=== PATIENT | female | born 1950 | race Caucasian/White ===

== ENCOUNTER 2017-08-21 16:54 | Observation (INO) ==
--- NOTE | 2017-08-21 17:05 | Emergency Department Note ---
Disposition Clinical Impression: Perirectal abscess Disposition: Admitted As Inpatient Condition: Fair Referrals: Curt Rosenbaum MD [Primary Care Provider] - Time of Disposition: 21:46 Skin/Abscess/FB HPI Chief complaint: ED Skin/Abscess/Foreign Body Stated complaint: rectal cyst Time Seen by Provider: 08/21/17 16:58 Nursing Notes Reviewed: Yes Vital Signs Reviewed: Yes HPI Narrative: 57-year-old female presents from home for evaluation of pain in her perineum and rectum. Onset 6 days ago and progressive. She states there is a palpable golf ball sized mass beneath her perineum. It is internal and not external. She has a remote history of hemorrhoid was resected. She has no bleeding per rectum. She is concerned as masses painful and she is having difficulty sitting. Abdominal surgical history: Hysterectomy, bilateral oophorectomy. ROS: Positive: As above Negative: Fever, chills, nausea, vomiting, diarrhea, constipation, melena, hematochezia, dysuria. Home Medications Medication Instructions Recorded Confirmed Aspirin Enteric Coated [Aspirin EC] 81 mg PO DAILY 11/22/14 05/10/16 Carvedilol [Coreg] 12.5 mg PO BIDWM 11/22/14 05/10/16 Ergocalciferol (VITAMIN D2) 50,000 unit PO QWEEK 11/22/14 05/10/16 [Vitamin D2 (50,000 UNIT)] Glimepiride [Amaryl] 2 mg PO 0800 11/22/14 05/10/16 Insulin Glargine,Hum.rec.anlog 56 units SQ QPM 11/22/14 05/10/16 [Lantus Solostar] Insulin LISPRO [Humalog Kwikpen] 15 units SQ BID 11/22/14 05/10/16 Isosorbide MONOnitrate (24 HR) 30 mg PO DAILY 11/22/14 05/10/16 [Imdur] Lisinopril [Zestril] 40 mg PO DAILY 11/22/14 05/10/16 Lovastatin [Altoprev] 40 mg PO BID 11/22/14 05/10/16 Levocetirizine Dihydrochloride 5 mg PO HS 05/10/16 05/10/16 [Xyzal] Allergies Allergy/AdvReac Type Severity Reaction Status Date / Time atorvastatin [From Lipitor] Allergy Rash Verified 08/21/17 16:56 codeine Allergy Rash Verified 08/21/17 16:56 ibuprofen Allergy Rash Verified 08/21/17 16:56 NSAIDS (Non-Steroidal Allergy Rash Verified 08/21/17 16:56 Anti-Inflamma pioglitazone [From Actos] Allergy Rash Verified 08/21/17 16:56 Sulfa (Sulfonamide Allergy Hives Verified 08/21/17 16:56 Antibiotics) tramadol Allergy Rash Verified 08/21/17 16:56 HYDROCHLORIDE SALSALATE Allergy See Uncoded 11/22/14 14:43 Comments IVP DYE AdvReac Difficulty Uncoded 11/22/14 14:42 Breathing All systems ED: reviewed and negative except as stated. Review of Systems: As Per HPI Past Medical History - Past Medical History Medical history: Reports: coronary artery disease, diabetes, hyperlipidemia, hypertension, other Surgical history: Reports: cholecystectomy, orthopedic, other, NATALIYA/BSO, other Psychiatric history: Reports: no psych history - Social History Smoking Status: Never smoker Smokeless Tobacco Status: No Alcohol use: Reports: none Drug use: Reports: none Physical Exam Vital Signs Reviewed General: Patient is alert, oriented, and in moderate distress from her peritoneal pain Head: atraumatic, normocephalic Eye: normal appearance, no scleral icterus, no conjunctival injection ENT: mucous membranes moist, normal external ear exam Neck: normal inspection, trachea midline, full ROM Chest: normal inspection, symmetric chest rise Respiratory: Good respiratory effort. Bilateral breath sounds are clear without wheezing, crackles, or rhonchi. Cardiovascular: Regular rate and rhythm. No clicks, rubs, gallops, or murmors. Normal heart sounds. Abdomen: Obese. Bowel sounds present normoactive. Abdomen is soft, nondistended, and nontender. No guarding or rebound. Musculoskeletal: Spontaneously moving all extremities. Skin: warm, dry, intact. Rectal/: Surveillance Monitor present. Patient has a 2 cm wide by 5-6 cm long mass extending from the rectal orifice along the perineum anteriorly. It is tense, mildly erythematous, tender to palpation, with palpable induration. On digital rectal exam, this mass extended approximately 5 cm deep in the rectum. Neuro: Alert and oriented x4. Sensation light touch intact. Psych: Patient's affect is appropriate for situation. Course Course Narrative: We will provide patient IV analgesia. X Chart shows an allergy to IV dye-patient with difficulty breathing. I discussed this patient. She was not aware she had an allergy until she was told by hospital staff after a heart catheter. She is not sure of her reaction. She is agreeable to moving forward with the CT with IV contrast on the condition and we premedicate her per protocol. Per radiology protocol, premedication includes Solu-Cortef 200 mg IV every 4 hours plus diphenhydramine 50 mg IV one hour prior to injection.. Patient tolerated CT with IV contrast well. She has elevated white count. CT pelvis with IV contrast shows concern for perirectal abscess. I discussed the above with on-call surgery, Dr. Bradley. She was take the patient to surgery tonight. We will begin empiric Zosyn. I discussed the above with the patient. She continues to be comfortable while laying on her side with no weightbearing on her peridium. She agrees to this plan of care. Patient admitted to Dr. Bradley. Patient was taken from the ER to the OR to the medical floor. Pelvis CT 08/21/17 17:28 IMPRESSION: 1. 4.9 x 3.9 x 4.3 cm fluid density collection in the posterior perineum with adjacent stranding suspicious for an abscess. 2. Status post hysterectomy. 3. Colonic diverticulosis. D/ / Jarred Tafoya MD / Jarred Tafoya MD Interpreting Provider: Jarred Tafoya MD Vital Signs Temperature 98.0 F 08/21/17 16:55 Pulse Rate 80 08/21/17 16:55 Respiratory Rate 16 08/21/17 16:55 Blood Pressure 186/79 08/21/17 16:55 O2 Sat by Pulse Oximetry 98 08/21/17 16:55 Temperature 98.0 F 08/21/17 18:06 Pulse Rate 75 08/21/17 20:58 Respiratory Rate 20 08/21/17 20:58 Blood Pressure 157/96 08/21/17 20:58 O2 Sat by Pulse Oximetry 95 08/21/17 20:58 Oxygen Delivery Oxygen Delivery Room Air Skin/Abscess/Foreign Body - Lab Data Result diagrams: 08/21/17 19:43 08/21/17 18:31 Lab Results 08/21/17 08/21/17 08/21/17 Range/Units 18:21 18:31 19:43 WBC 19.3 H (4.3-11.1) K/mcL RBC 4.53 (3.82-4.97) M/mcL Hgb 13.1 (11.5-15.4) g/dL Hct 40.6 (35.3-44.9) % MCV 89.6 (83.0-100.0) fL MCH 28.9 (28.0-33.3) pg MCHC 32.3 (31.6-35.5) g/dL RDW 13.3 (11.5-14.5) % Plt Count 242 (140-400) K/mcL MPV 10.7 (9.4-12.4) fL Immature Gran % 0.8 (0-4) % Seg Neutrophils % 76.3 % Lymphocytes % 15.5 % Monocytes % 6.2 % Eosinophils % 0.9 % Basophils % 0.3 % Neutrophils # 14.7 H (1.6-8.9) K/mcL Lymphocytes # 3.0 (0.6-4.6) K/mcL Monocytes # 1.2 (0.0-1.3) K/mcL Eosinophils # 0.2 (0.0-0.6) K/mcL Basophils # 0.1 (0.0-0.2) K/mcL PT (9.4-12.1) Seconds INR Sodium 139 (136-145) mEq/L Potassium 4.0 (3.5-5.1) mEq/L Chloride 104 (98-107) mEq/L Carbon Dioxide 26 (23-29) mEq/L BUN 22 (8-23) mg/dL Creatinine 1.28 H (0.60-1.20) mg/dL Est GFR ( Amer) 50 L (> 60) Est GFR (Non-Af Amer) 42 L (> 60) BUN/Creatinine Ratio 17 (6-26) Glucose 105 (70-105) mg/dL Calculated Osmolality 292 (280-300) Lactic Acid (0.5-2.2) mmol/L Calcium 8.9 (8.6-10.3) mg/dL Specimen Rejected Hemolyzed 07/01/18 07/01/18 Range/Units 20:32 20:32 WBC (4.3-11.1) K/mcL RBC (3.82-4.97) M/mcL Hgb (11.5-15.4) g/dL Hct (35.3-44.9) % MCV (83.0-100.0) fL MCH (28.0-33.3) pg MCHC (31.6-35.5) g/dL RDW (11.5-14.5) % Plt Count (140-400) K/mcL MPV (9.4-12.4) fL Immature Gran % (0-4) % Seg Neutrophils % % Lymphocytes % % Monocytes % % Eosinophils % % Basophils % % Neutrophils # (1.6-8.9) K/mcL Lymphocytes # (0.6-4.6) K/mcL Monocytes # (0.0-1.3) K/mcL Eosinophils # (0.0-0.6) K/mcL Basophils # (0.0-0.2) K/mcL PT 13.4 H (9.4-12.1) Seconds INR 1.2 Sodium (136-145) mEq/L Potassium (3.5-5.1) mEq/L Chloride (98-107) mEq/L Carbon Dioxide (23-29) mEq/L BUN (8-23) mg/dL Creatinine (0.60-1.20) mg/dL Est GFR ( Amer) (> 60) Est GFR (Non-Af Amer) (> 60) BUN/Creatinine Ratio (6-26) Glucose (70-105) mg/dL Calculated Osmolality (280-300) Lactic Acid 0.9 (0.5-2.2) mmol/L Calcium (8.6-10.3) mg/dL Specimen Rejected
[2017-08-21] MEDS ORDERED: 0.9 % Sodium Chloride 1,000 ML IVC ONE (17:28)
[2017-08-21] MEDS ORDERED: Isovue-370 500 ML INFUS..BTL IV ONE (17:28)
[2017-08-21] MEDS ORDERED: *HR* FentaNYL (PF) 100 MCG/2 ML VIAL IVP ONE (17:28)
[2017-08-21] MEDS ORDERED: Hydrocortisone Sodium Succ 100 MG/2 ML VIAL IVP ONE (17:39)
[2017-08-21 19:05] LABS: Calcium 8.9 mg/dL (8.6-10.3)
[2017-08-21] MEDS ORDERED: Piperacillin/Tazobactam 3.375 GM in 0.9 % Sodium Chloride Mini Bag 100 ML IVPB ONE (19:52)
[2017-08-21 20:00] LABS: Basophils # 0.1 K/mcL (0.0-0.2); Basophils % 0.3 %; Eosinophils # 0.2 K/mcL (0.0-0.6); Eosinophils % 0.9 %; Hematocrit 40.6 % (35.3-44.9); Hemoglobin 13.1 g/dL (11.5-15.4); Immature Granulocytes % 0.8 % (0-4); Lymphocytes % 15.5 %; Mean Corpuscular HGB Conc 32.3 g/dL (31.6-35.5); Mean Corpuscular Hemoglobin 28.9 pg (28.0-33.3); Mean Corpuscular Volume 89.6 fL (83.0-100.0); Mean Platelet Volume 10.7 fL (9.4-12.4); Monocytes # 1.2 K/mcL (0.0-1.3); Monocytes % 6.2 %; Neutrophils # 14.7 K/mcL (1.6-8.9); Platelet Count 242 K/mcL (140-400); Red Blood Count 4.53 M/mcL (3.82-4.97); Red Cell Distribution Width 13.3 % (11.5-14.5); Segmented Neutrophils % 76.3 %
--- NOTE | 2017-08-21 20:09 | Emergency Department Note ---
Disposition Clinical Impression: Perirectal abscess Disposition: Admitted As Inpatient Referrals: Curt Rosenbaum MD [Primary Care Provider] - Forms: ED Satisfaction Letter General Adult HPI - General Chief complaint: ED Skin/Abscess/Foreign Body Stated complaint: rectal cyst Time Seen by Provider: 08/21/17 16:58 Source: patient Limitations: no limitations Nursing Notes Reviewed: Yes Vital Signs Reviewed: Yes - History of Present Illness HPI Narrative: I examined this patient and my medical decision-making was reviewed with the Resident Physician. I agree with the documented findings, disposition and treatment plan as described except to the extent set forth below. 67-year-old female presented to the emergency room for swelling in the perianal region. Workup here revealed that she had a large perirectal abscess. We consulted with surgery. She will take the patient to the operating room. Pain Scale: 10 - Related Data Home Medications Medication Instructions Recorded Confirmed Aspirin Enteric Coated [Aspirin EC] 81 mg PO DAILY 11/22/14 05/10/16 Carvedilol [Coreg] 12.5 mg PO BIDWM 11/22/14 05/10/16 Ergocalciferol (VITAMIN D2) 50,000 unit PO QWEEK 11/22/14 05/10/16 [Vitamin D2 (50,000 UNIT)] Glimepiride [Amaryl] 2 mg PO 0800 11/22/14 05/10/16 Insulin Glargine,Hum.rec.anlog 56 units SQ QPM 11/22/14 05/10/16 [Lantus Solostar] Insulin LISPRO [Humalog Kwikpen] 15 units SQ BID 11/22/14 05/10/16 Isosorbide MONOnitrate (24 HR) 30 mg PO DAILY 11/22/14 05/10/16 [Imdur] Lisinopril [Zestril] 40 mg PO DAILY 11/22/14 05/10/16 Lovastatin [Altoprev] 40 mg PO BID 11/22/14 05/10/16 Levocetirizine Dihydrochloride 5 mg PO HS 05/10/16 05/10/16 [Xyzal] Allergies Allergy/AdvReac Type Severity Reaction Status Date / Time atorvastatin [From Lipitor] Allergy Rash Verified 08/21/17 16:56 codeine Allergy Rash Verified 08/21/17 16:56 ibuprofen Allergy Rash Verified 08/21/17 16:56 NSAIDS (Non-Steroidal Allergy Rash Verified 08/21/17 16:56 Anti-Inflamma pioglitazone [From Actos] Allergy Rash Verified 08/21/17 16:56 Sulfa (Sulfonamide Allergy Hives Verified 08/21/17 16:56 Antibiotics) tramadol Allergy Rash Verified 08/21/17 16:56 HYDROCHLORIDE SALSALATE Allergy See Uncoded 11/22/14 14:43 Comments IVP DYE AdvReac Difficulty Uncoded 11/22/14 14:42 Breathing Past Medical History - Past Medical History Medical history: Reports: coronary artery disease, diabetes, hyperlipidemia, hypertension, other Surgical history: Reports: cholecystectomy, orthopedic, other, NATALIYA/BSO, other Psychiatric history: Reports: no psych history - Social History Smoking Status: Never smoker Smokeless Tobacco Status: No Alcohol use: Reports: none Drug use: Reports: none Physical Exam - General Limitations: no limitations General appearance: alert, in no apparent distress Course Vital Signs Temperature 98.0 F 08/21/17 16:55 Pulse Rate 80 08/21/17 16:55 Respiratory Rate 16 08/21/17 16:55 Blood Pressure 186/79 08/21/17 16:55 O2 Sat by Pulse Oximetry 98 08/21/17 16:55 Temperature 98.0 F 08/21/17 18:06 Pulse Rate 70 08/21/17 19:45 Respiratory Rate 18 08/21/17 19:45 Blood Pressure 116/64 08/21/17 19:45 O2 Sat by Pulse Oximetry 94 08/21/17 19:45 Oxygen Delivery Oxygen Delivery Room Air Medical Decision Making - Lab Data Result diagrams: 08/21/17 19:43 08/21/17 18:31 Lab Results 08/21/17 08/21/17 08/21/17 Range/Units 18:21 18:31 19:43 WBC 19.3 H (4.3-11.1) K/mcL RBC 4.53 (3.82-4.97) M/mcL Hgb 13.1 (11.5-15.4) g/dL Hct 40.6 (35.3-44.9) % MCV 89.6 (83.0-100.0) fL MCH 28.9 (28.0-33.3) pg MCHC 32.3 (31.6-35.5) g/dL RDW 13.3 (11.5-14.5) % Plt Count 242 (140-400) K/mcL MPV 10.7 (9.4-12.4) fL Immature Gran % 0.8 (0-4) % Seg Neutrophils % 76.3 % Lymphocytes % 15.5 % Monocytes % 6.2 % Eosinophils % 0.9 % Basophils % 0.3 % Neutrophils # 14.7 H (1.6-8.9) K/mcL Lymphocytes # 3.0 (0.6-4.6) K/mcL Monocytes # 1.2 (0.0-1.3) K/mcL Eosinophils # 0.2 (0.0-0.6) K/mcL Basophils # 0.1 (0.0-0.2) K/mcL Sodium 139 (136-145) mEq/L Potassium 4.0 (3.5-5.1) mEq/L Chloride 104 (98-107) mEq/L Carbon Dioxide 26 (23-29) mEq/L BUN 22 (8-23) mg/dL Creatinine 1.28 H (0.60-1.20) mg/dL Est GFR ( Amer) 50 L (> 60) Est GFR (Non-Af Amer) 42 L (> 60) BUN/Creatinine Ratio 17 (6-26) Glucose 105 (70-105) mg/dL Calculated Osmolality 292 (280-300) Calcium 8.9 (8.6-10.3) mg/dL Specimen Rejected Hemolyzed
[2017-08-21] MEDS ORDERED: *HR* FentaNYL (PF) 100 MCG/2 ML VIAL ONE (20:28)
[2017-08-21] MEDS ORDERED: *HR* Propofol 200 MG/20 ML VIAL IVP ONE (20:28)
[2017-08-21] MEDS ORDERED: Lidocaine -MPF 2% 2 ML VIAL ONE (20:28)
[2017-08-21] MEDS ORDERED: *HR* Midazolam HCl 2 MG/2 ML VIAL ONE (20:28)
[2017-08-21] MEDS ORDERED: Lidocaine -MPF 4% 5 ML AMPUL ONE (20:28)
[2017-08-21] MEDS ORDERED: *HR* Succinylcholine 200 MG/10 ML VIAL IVP ONE (20:28)
[2017-08-21 20:50] LABS: INR 1.2; Prothrombin Time 13.4 Seconds (9.4-12.1)
--- NOTE | 2017-08-21 20:55 | Anesthesia Evaluation PreOp ---
Date of Encounter: 08/21/17 Time of Encounter: 20:58 - Past History Planned Operation: I&D perirectal abcess Cardiac History: HTN, Hyperlipidemia, Arrhythmia (Hx of Tachycardia [Not AFib per Pt]), Other (?CAD?) Pulmonary History: SOPHIE Dx (probable but undiagnosed) PEDIATRIC OPHTHALMOLOGIST History: Denies Any Significant HX Other Medical History: Renal (stage 3 CKD), Diabetes Type II, Other (MO/BMI = 51 ) Anesthesia History: No Prior Anesthetic Complications, Past Anesthesia (Ginny, NATALIYA/BSO, Orthopedic procedures, Perirectal abcess I&D [in ED] 2016,) Alcohol Use: none Drug use: none Medications and Allergies Aspirin Enteric Coated [Aspirin EC] 81 mg PO DAILY 11/22/14 [History] Carvedilol [Coreg] 12.5 mg PO BIDWM 11/22/14 [History] Ergocalciferol (VITAMIN D2) [Vitamin D2 (50,000 UNIT)] 50,000 unit PO QWEEK 04/07 [History] Glimepiride [Amaryl] 2 mg PO 0800 11/22/14 [History] Insulin Glargine,Hum.rec.anlog [Lantus Solostar] 56 units SQ QPM 11/22/14 [ History] Insulin LISPRO [Humalog Kwikpen] 15 units SQ BID 11/22/14 [History] Isosorbide MONOnitrate (24 HR) [Imdur] 30 mg PO DAILY 11/22/14 [History] Lisinopril [Zestril] 40 mg PO DAILY 11/22/14 [History] Lovastatin [Altoprev] 40 mg PO BID 11/22/14 [History] Levocetirizine Dihydrochloride [Xyzal] 5 mg PO HS 05/10/16 [History] 3 Allergy/AdvReac Type Severity Reaction Status Date / Time atorvastatin [From Lipitor] Allergy Rash Verified 08/21/17 16:56 codeine Allergy Rash Verified 08/21/17 16:56 ibuprofen Allergy Rash Verified 08/21/17 16:56 NSAIDS (Non-Steroidal Allergy Rash Verified 08/21/17 16:56 Anti-Inflamma pioglitazone [From Actos] Allergy Rash Verified 08/21/17 16:56 Sulfa (Sulfonamide Allergy Hives Verified 08/21/17 16:56 Antibiotics) tramadol Allergy Rash Verified 08/21/17 16:56 HYDROCHLORIDE SALSALATE Allergy See Uncoded 11/22/14 14:43 Comments IVP DYE AdvReac Difficulty Uncoded 11/22/14 14:42 Breathing - Meds/Allergy Pre-op Review Medications Reviewed: Yes Allergies Reviewed: Yes Beta Blockers on Current Med List: Yes (Carvedilol) If Beta Blockers taken, Date/Time (Last Dose taken): 08/21/2017 @ Anesthesia Results - Labs 08/21/17 19:43 08/21/17 18:31 Laboratory Results WBC 19.3 K/mcL (4.3-11.1) H 08/21/17 19:43 RBC 4.53 M/mcL (3.82-4.97) 08/21/17 19:43 Hgb 13.1 g/dL (11.5-15.4) 08/21/17 19:43 Hct 40.6 % (35.3-44.9) 08/21/17 19:43 MCV 89.6 fL (83.0-100.0) 08/21/17 19:43 MCH 28.9 pg (28.0-33.3) 08/21/17 19:43 MCHC 32.3 g/dL (31.6-35.5) 08/21/17 19:43 RDW 13.3 % (11.5-14.5) 08/21/17 19:43 Plt Count 242 K/mcL (140-400) 08/21/17 19:43 MPV 10.7 fL (9.4-12.4) 08/21/17 19:43 Immature Gran % 0.8 % (0-4) 08/21/17 19:43 Seg Neutrophils % 76.3 % 08/21/17 19:43 Lymphocytes % 15.5 % 08/21/17 19:43 Monocytes % 6.2 % 08/21/17 19:43 Eosinophils % 0.9 % 08/21/17 19:43 Basophils % 0.3 % 08/21/17 19:43 Neutrophils # 14.7 K/mcL (1.6-8.9) H 08/21/17 19:43 Lymphocytes # 3.0 K/mcL (0.6-4.6) 08/21/17 19:43 Monocytes # 1.2 K/mcL (0.0-1.3) 08/21/17 19:43 Eosinophils # 0.2 K/mcL (0.0-0.6) 08/21/17 19:43 Basophils # 0.1 K/mcL (0.0-0.2) 08/21/17 19:43 PT 13.4 Seconds (9.4-12.1) H 08/21/17 20:32 INR 1.2 08/21/17 20:32 Sodium 139 mEq/L (136-145) 08/21/17 18:31 Potassium 4.0 mEq/L (3.5-5.1) 08/21/17 18:31 Chloride 104 mEq/L (98-107) 08/21/17 18:31 Carbon Dioxide 26 mEq/L (23-29) 08/21/17 18:31 BUN 22 mg/dL (8-23) 08/21/17 18:31 Creatinine 1.28 mg/dL (0.60-1.20) H 08/21/17 18:31 Est GFR ( Amer) 50 (> 60) L 08/21/17 18:31 Est GFR (Non-Af Amer) 42 (> 60) L 08/21/17 18:31 BUN/Creatinine Ratio 17 (6-26) 08/21/17 18:31 Glucose 105 mg/dL (70-105) 08/21/17 18:31 Calculated Osmolality 292 (280-300) 08/21/17 18:31 Lactic Acid 0.9 mmol/L (0.5-2.2) 08/21/17 20:32 Calcium 8.9 mg/dL (8.6-10.3) 08/21/17 18:31 Specimen Rejected Hemolyzed 08/21/17 18:[address] 08/21/17 17:28 IMPRESSION: 1. 4.9 x 3.9 x 4.3 cm fluid density collection in the posterior perineum with adjacent stranding suspicious for an abscess. 2. Status post hysterectomy. 3. Colonic diverticulosis. D/ / Jarred Tafoya MD / Jarred Tafoya MD Interpreting Provider: Jarred Tafoya MD Anesthesia Exam Vital Signs Temp Pulse Resp BP Pulse Ox 08/21/17 20:58 75 20 157/96 95 08/21/17 19:45 70 18 116/64 94 08/21/17 18:06 98.0 F 80 16 186/79 98 08/21/17 16:55 98.0 F 80 16 186/79 98 Intake and Output 08/21/17 08/21/17 08/21/17 07:59 15:59 23:59 Other: Weight 138.346 kg Patient Weight 08/21/17 23:59 Weight 138.346 kg Height: 5'5" Weight: 305# BMI = 51 NPO (# of Hours): 1600 [place]/Crackers, 1500 drink Pain Scale Used: Numeric (1 - 10) - HEENT Pupil (Motor): Pupils equal, EOMI Mallampati: II Teeth: Normal Oral Opening: Greater than 3 - PEDIATRIC OPHTHALMOLOGIST LOC: Oriented PEDIATRIC OPHTHALMOLOGIST Motor: Normal RUE, Normal LUE, Normal RLE, Normal LLE, Normal Face PEDIATRIC OPHTHALMOLOGIST Sensory: Normal: RUE, LUE, RLE, LLE, Face - Cardiac Rhythm: Regular Murmur: None - Pulmonary Breath Sounds: bilateral Clear Respiratory Effort: Symmetrical Anesthesia Assess/Plan ASA Score: 4 (MO/BMI = 51, HTN, Chol, SOPHIE, DM, Stage 3 CKD, Tachycardia), E Modified Tash Scale for Level of Consciousness: Cooperative, oriented, and tranquil Anesthetic Plan: General Monitoring Plan: Standard Monitors Recovery Plan: PACU Anes Supervising Prov Stmt: Pt seen/evaluated, R&B Discussed, questions answered and consent obtained. Nathaly Irving MD
--- NOTE | 2017-08-21 21:01 | General Surg History&Physical ---
Date of Encounter: 08/21/17 Time of Encounter: 20:59 Assessment and Plan (1) HTN (hypertension) Current Visit: Yes Status: Chronic The assessment and plan as outlined above was discussed with the patient and/or family members who expressed understanding and agreement. All questions were answered. continue home medication, normotensive currently Qualifiers: Hypertension type: essential hypertension Qualified Code(s): I10 - Essential (primary) hypertension (2) HLD (hyperlipidemia) Current Visit: Yes Status: Chronic The assessment and plan as outlined above was discussed with the patient and/or family members who expressed understanding and agreement. All questions were answered. continue home medication Qualifiers: Hyperlipidemia type: unspecified Qualified Code(s): E78.5 - Hyperlipidemia , unspecified (3) DM (diabetes mellitus), type 2 with renal complications Current Visit: Yes Status: Chronic The assessment and plan as outlined above was discussed with the patient and/or family members who expressed understanding and agreement. All questions were answered. 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 All questions were answered. discussed with patient CT results, labs and PE she has an anterior perirectal abscess, will plan I/D in OR, risks and benefits discussed and she wishes to proceed npo, ivfh prn pain control gi/dvt prophylaxis ok for home medications antibiotics History of Present Illness Chief complaint: perirectal pain HPI: Ms. Francois is a 67 year old female who has had a perirectal abscess about a year ago. She states about a week ago she started having pain near her anus/ rectal area. The pain has progressively gotten worse over the week. She states it is so painful she can barely sit on the area. She denies pain with bms. She has no fevers, chills or night sweats. The area is no draining. She is diabetic and obese. She presented to the ED due to the pain. CT pelvis showed "ovoid fluid density collection in the posterior aspect of the perineum measures approximately 4.9 x 3.9 x 4.3, Adjacent subcutaneous fat stranding is seen." wbc 19.3 Past Med Surg Social Fam HX - Past Medical History Source: patient Medical history: coronary artery disease, diabetes, hyperlipidemia, hypertension , other Additional medical history: NEUROPATHY, CATARACTS, CELLULITIS, history pancreatitis, history perirectal abscess/I&D, CKD3 Psychiatric history: no psych history - Past Surgical History Surgical History: cholecystectomy, orthopedic, other, NATALIYA/BSO, other Additional surgical history: RT/LT ROTATOR CUFF REPAIR 09/06/08, HEART CATH AND 08/22/10, RECTAL ABSCESS 07/05 CARPAL TUNNEL REPAIR - Social History Smoking Status: Never smoker Smokeless Tobacco Status: No Alcohol use: none Drug use: none - Family History Father Adopted: No Living Status: Hx Family Cardiac Disorders: No Hx Family Respiratory Disorders: Yes Hx Family Cancer: No Hx Family GI Disorders: No Hx Family Endocrine Disorder: No Hx Family Neuromuscular Disorders: No Hx Family Neurologic Disorders: No Hx Family HEENT Disorders: No Hx Family Autoimmune Disorders: No Mother Adopted: No Living Status: Hx Family Cardiac Disorders: Yes Hx Family Respiratory Disorders: No Hx Family Cancer: Yes (COLON CANCER) Hx Family GI Disorders: No Hx Family Endocrine Disorder: No Hx Family Neurologic Disorders: No Hx Family HEENT Disorders: No Hx Family Autoimmune Disorders: No Medications and Allergies Aspirin Enteric Coated [Aspirin EC] 81 mg PO DAILY 11/22/14 [History] Carvedilol [Coreg] 12.5 mg PO BIDWM 11/22/14 [History] Ergocalciferol (VITAMIN D2) [Vitamin D2 (50,000 UNIT)] 50,000 unit PO QWEEK 04/07 [History] Glimepiride [Amaryl] 2 mg PO 0800 11/22/14 [History] Insulin Glargine,Hum.rec.anlog [Lantus Solostar] 56 units SQ QPM 11/22/14 [ History] Insulin LISPRO [Humalog Kwikpen] 15 units SQ BID 11/22/14 [History] Isosorbide MONOnitrate (24 HR) [Imdur] 30 mg PO DAILY 11/22/14 [History] Lisinopril [Zestril] 40 mg PO DAILY 11/22/14 [History] Lovastatin [Altoprev] 40 mg PO BID 11/22/14 [History] Levocetirizine Dihydrochloride [Xyzal] 5 mg PO HS 05/10/16 [History] 3 Allergy/AdvReac Type Severity Reaction Status Date / Time atorvastatin [From Lipitor] Allergy Rash Verified 08/21/17 16:56 codeine Allergy Rash Verified 08/21/17 16:56 ibuprofen Allergy Rash Verified 08/21/17 16:56 NSAIDS (Non-Steroidal Allergy Rash Verified 08/21/17 16:56 Anti-Inflamma pioglitazone [From Actos] Allergy Rash Verified 08/21/17 16:56 Sulfa (Sulfonamide Allergy Hives Verified 08/21/17 16:56 Antibiotics) tramadol Allergy Rash Verified 08/21/17 16:56 HYDROCHLORIDE SALSALATE Allergy See Uncoded 11/22/14 14:43 Comments IVP DYE AdvReac Difficulty Uncoded 11/22/14 14:42 Breathing Review of Systems All systems PM: reviewed and no additional remarkable complaints except as stated All systems PM: The remainder of the systems were reviewed and are negative General Surgery Exam Initial Vital Signs Temp Pulse Resp BP Pulse Ox 98.0 F 80 16 186/79 98 08/21/17 16:55 08/21/17 16:55 08/21/17 16:55 08/21/17 16:55 08/21/17 16:55 - General physical appearance well developed, well nourished, no distress - Eyes PERRL, normal ocular movement - ENT normal mucosa, normocephalic - Neck trachea midline - Respiratory normal expansion, clear to auscultation - Cardiovascular Cardiovascular exam: Present: RRR - Abdomen Abdomen general surgery: Present: soft, non tender - Genitourinary Present: other (perineal inflammation anterior to the rectum, tender, erythematous, indurated) - Integumentary Integumentary general surgery: Present: warm and dry, no abnormal pigmentation - Neurologic Present: CN 2-12 grossly intact - Musculoskeletal Present: normal gait, normal posture - Psychiatric Psychiatric general surgery: Present: A&Ox3, speech is normal Results - Labs 08/21/17 19:43 08/21/17 18:31 Abnormal lab results WBC 19.3 K/mcL (4.3-11.1) H 08/21/17 19:43 Neutrophils # 14.7 K/mcL (1.6-8.9) H 08/21/17 19:43 PT 13.4 Seconds (9.4-12.1) H 08/21/17 20:32 Creatinine 1.28 mg/dL (0.60-1.20) H 08/21/17 18:31 Est GFR ( Amer) 50 (> 60) L 08/21/17 18:31 Est GFR (Non-Af Amer) 42 (> 60) L 08/21/17 18:31 Diabetes panel 08/21/17 Range/Units 18:31 Sodium 139 (136-145) mEq/L Potassium 4.0 (3.5-5.1) mEq/L Chloride 104 (98-107) mEq/L Carbon Dioxide 26 (23-29) mEq/L BUN 22 (8-23) mg/dL Creatinine 1.28 H (0.60-1.20) mg/dL Glucose 105 (70-105) mg/dL Calcium 8.9 (8.6-10.3) mg/dL Calcium panel 08/21/17 Range/Units 18:31 Calcium 8.9 (8.6-10.3) mg/dL Pituitary panel 08/21/17 Range/Units 18:31 Sodium 139 (136-145) mEq/L Potassium 4.0 (3.5-5.1) mEq/L Chloride 104 (98-107) mEq/L Carbon Dioxide 26 (23-29) mEq/L BUN 22 (8-23) mg/dL Creatinine 1.28 H (0.60-1.20) mg/dL Glucose 105 (70-105) mg/dL Calcium 8.9 (8.6-10.3) mg/dL Adrenal panel 08/21/17 Range/Units 18:31 Sodium 139 (136-145) mEq/L Potassium 4.0 (3.5-5.1) mEq/L Chloride 104 (98-107) mEq/L Carbon Dioxide 26 (23-29) mEq/L BUN 22 (8-23) mg/dL Creatinine 1.28 H (0.60-1.20) mg/dL Glucose 105 (70-105) mg/dL Calcium 8.9 (8.6-10.3) mg/dL All other labs normal. - Imaging CT scan - pelvis: report reviewed, image reviewed
[2017-08-21] MEDS ORDERED: Ondansetron 4 MG/2 ML VIAL IVP PRN ×2 (21:10→23:17)
[2017-08-21] MEDS ORDERED: Naloxone 0.4 MG/ML INJ IVP PRN ×2 (21:10→23:17)
[2017-08-21] MEDS ORDERED: Acetaminophen IV 1,000 MG/100 ML INFUS..BTL ONE (21:14)
[2017-08-21] MEDS ORDERED: Famotidine 20 MG/2 ML VIAL ONE (21:14)
[2017-08-21] MEDS ORDERED: Metoclopramide 10 MG/2 ML VIAL ONE (21:14)
[2017-08-21] MEDS ORDERED: 0.9 % Sodium Chloride 1,000 ML IVC SCH (21:15)
[2017-08-21] MEDS ORDERED: Dextrose Gel 15 GM/37.5 ML TUBE PO PRN ×4 (21:19→23:17)
[2017-08-21] MEDS ORDERED: *HR* Dextrose 50 % in Water (Syg) 50 ML SYRINGE IVP PRN ×2 (21:19→23:17)
[2017-08-21] MEDS ORDERED: D5% in Water 1,000 ML IVC PRN ×2 (21:19→23:17)
[2017-08-21] MEDS ORDERED: Lacri-Lube 3.5 GM TUBE ONE (22:23)
[2017-08-21] MEDS ORDERED: Ondansetron 4 MG/2 ML VIAL ONE (22:24)
--- NOTE | 2017-08-21 22:40 | Operative Note ---
Date of procedure: 08/21/17 Pre-op diagnosis: perirectal abscess Post-op diagnosis: same Procedure: Incision and drainage perirectal abscess Complications: none immediate Anesthesia: ROSALINDAA Surgeon: Yuliet Bradley Was there an laboratory assistant present: No Estimated blood loss (cc): 5 Specimen: aerobic/anaerobic cultures Condition: stable Disposition: PACU Procedure in Detail: Patient was brought to the operating suite on the transport cart. Finan was performed and everyone was in agreement. Anesthesia was induced and patient was endotracheally intubated by anesthesia without incident. She was placed prone on the operating table with pressure points padded with foam intelligence. The perianal area and bilateral buttocks were prepped and draped in the usual sterile fashion with Betadine. Timeout was performed again everyone was in agreement. A 20 mL syringe and a 21-gauge needle were used to locate the area of abscess which with anterior to the rectum. Using an 11 blade an ellipse of skin with excised overlying the abscess, with copious purulent foul-smelling drainage resulting. A aerobic and anaerobic cultures were obtained. The pelvis was suctioned free from the abscess cavity. The abscess cavity was copiously irrigated with sterile saline. Any loculations were broken up with the Yankauer. The wound was packed with half-inch iodoform packing, covered with 4 x 4 gauze and secured with tape. All lap and management counts were correct at the end of the case. The patient tolerated the procedure well. She was then placed supine on the transport cart where she was awoken by anesthesia and extubated in the OR without incident. She was taken PACU in stable condition
[2017-08-21] MEDS ORDERED: Morphine Oral CONC 5 MG/0.25 ML ORAL.SYG PO PRN (23:17)
--- NOTE | 2017-08-21 23:23 | Anesthesia Evaluation Post Op ---
Date of Encounter: 08/21/17 Time of Encounter: 23:20 - Vital Signs Vital Signs: Vital Signs/O2 Sat/Glucose, Most Current Temp Pulse Resp BP Pulse Ox 08/21/17 23:13 98.5 F 69 18 112/53 96 08/21/17 23:03 98.9 F 69 18 115/47 94 08/21/17 22:53 98.9 F 68 18 121/51 98 08/21/17 22:43 97.6 F 71 18 121/51 98 08/21/17 20:58 75 20 157/96 95 08/21/17 19:45 70 18 116/64 94 - Lungs Lungs: Clear Ascult./Percussion - Airway Airway: Non-obstructed - Cardiovascular Regular Rate - Mental Status Mental Status: Alert & Oriented, Answers Appropriately - Pain Pain Scale: 0 Pain Scale used: Numeric (1 - 10) - Nausea Vomiting Nausea Vomiting: Not Present - Hydration Hydration: Ice chips (declined ice chips), Has not voided - Discharge PostOp Status: Transfer Patient to floor Anes Supervising Prov Stmt: Pt seen/evaluated, VSS and pt has met criteria for discharge to floor. - MD Maria Fernanda
[2017-08-22] MEDS ORDERED: *HR* OxyCODONE/APAP 5/325 TABLET PO SCH
[2017-08-22] MEDS: *HR* OxyCODONE/APAP 5/325 TABLET PO SCH ×7 (00:18→23:48)
[2017-08-22] MEDS: 0.9 % Sodium Chloride 1,000 ML IVC SCH ×3 (00:18→16:23)
[2017-08-22] MEDS ORDERED: Piperacillin/Tazobactam 3.375 GM in 0.9 % Sodium Chloride Mini Bag 100 ML IVPB SCH (05:00)
[2017-08-22] MEDS: Piperacillin/Tazobactam 3.375 GM in 0.9 % Sodium Chloride Mini Bag 100 ML IVPB SCH ×3 (05:08→20:28)
[2017-08-22 06:11] LABS: Basophils % 0.2 %; Hematocrit 33.6 % (35.3-44.9); Immature Granulocytes % 1.3 % (0-4); Lymphocytes # 2.1 K/mcL (0.6-4.6); Lymphocytes % 11.6 %; Mean Corpuscular HGB Conc 31.8 g/dL (31.6-35.5); Mean Corpuscular Volume 91.1 fL (83.0-100.0); Mean Platelet Volume 10.3 fL (9.4-12.4); Monocytes % 5.3 %; Platelet Count 202 K/mcL (140-400); Red Blood Count 3.69 M/mcL (3.82-4.97); Red Cell Distribution Width 13.2 % (11.5-14.5); Segmented Neutrophils % 81.6 %
[2017-08-22 06:13] LABS: Hemoglobin 10.7 g/dL (11.5-15.4)
[2017-08-22 06:30] LABS: Calcium 7.9 mg/dL (8.6-10.3); Potassium 4.7 mEq/L (3.5-5.1)
[2017-08-22] MEDS ORDERED: Insulin LISPRO 300 UNITS/3 ML VIAL SQ SCH ×2 (07:30→08:00)
[2017-08-22] MEDS ORDERED: *HR* Glimepiride 2 MG TABLET PO SCH (08:00)
[2017-08-22] MEDS: Isosorbide MONOnitrate (24 HR) 30 MG TAB.ER.24H PO SCH (08:32)
[2017-08-22] MEDS: *HR* Glimepiride 2 MG TABLET PO SCH (08:33)
[2017-08-22] MEDS: Insulin LISPRO 300 UNITS/3 ML VIAL SQ SCH ×5 (08:35→16:23)
[2017-08-22] MEDS ORDERED: Lisinopril 20 MG TABLET PO SCH ×2 (09:00)
[2017-08-22] MEDS ORDERED: Isosorbide MONOnitrate (24 HR) 30 MG TAB.ER.24H PO SCH (09:00)
--- NOTE | 2017-08-22 09:27 | General Surgery Progress Note ---
<Dolores Hawkins - Last Filed: 08/22/17 09:28> Date of Encounter: 08/22/17 Time of Encounter: 09:27 - Assessment and Plan (1) Perirectal abscess Current Visit: Yes Status: Acute Date of procedure: 08/21/17 Pre-op diagnosis: perirectal abscess Post-op diagnosis: same Procedure: Incision and drainage perirectal abscess Complications: none immediate POD #1 as above Plan: -Daily wound care: Remove dressing and packing. Wash with antibacterial soap. Repack with 1/4 in plain gauze. Cover with a dry dressing. Tape to secure. Outer dressing will need changed with each BM. -referral made to for home health for wound care -Ambulate TID -Out of bed to chair for all trays -Diabetic diet -Continue home medications -Supportive care and discomfort management -Continue GI and DVT prophylaxis -d/c planning in the next 24-48 hours pending clinical course (2) Acute kidney injury superimposed on CKD Current Visit: Yes Status: Acute Continue IVF for acute on chronic kidney injury. 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 of insulin (4) HTN (hypertension) Current Visit: Yes Status: Chronic Currently well controlled Continue home medications Hold lisinopril today and tomorrow Qualifiers: Hypertension type: essential hypertension Qualified Code(s): I10 - Essential (primary) hypertension Objective Vital Signs - Last 8 Hours Temp Pulse Resp BP Pulse Ox 08/22/17 08:26 118/53 08/22/17 08:08 98/55 08/22/17 07:07 97.7 F 62 17 91/57 94 08/22/17 03:33 99.4 F 64 15 92/50 96 08/22/17 02:44 98.3 F 64 14 90/53 96 08/22/17 01:40 97.9 F 70 14 92/54 93 Intake and Output 08/21/17 08/22/17 08/22/17 23:59 07:59 15:59 Intake Total 240 / 240 500 / 500 1360 / 1360 Output Total 3 0 / 0 Balance 237 / 237 500 / 500 1360 / 1360 Intake: IV Fluids 1000 / 1000 0.9 % Sodium Chloride 1,000 ML 1000 / 1000 @ 120 mls/hr IVC .Q8H20M [facility] Rx #:[id number] Oral 240 / 240 500 / 500 360 / 360 Output: Urine 0 / 0 Estimated Blood Loss Other: Meal Breakfast Percent of Meal Consumed 100% Weight 140 kg Blood Glucose* 164 175 Patient Weight 08/22/17 23:59 Weight 140 kg - Labs 08/22/17 05:46 08/22/17 05:46 Diabetes panel 08/22/17 Range/Units 05:46 Sodium 138 (136-145) mEq/L Potassium 4.7 (3.5-5.1) mEq/L Chloride 106 (98-107) mEq/L Carbon Dioxide 23 (23-29) mEq/L BUN 25 H (8-23) mg/dL Creatinine 1.58 H (0.60-1.20) mg/dL Glucose 201 H (70-105) mg/dL Calcium 7.9 L (8.6-10.3) mg/dL Calcium panel 08/22/17 Range/Units 05:46 Calcium 7.9 L (8.6-10.3) mg/dL Pituitary panel 08/22/17 Range/Units 05:46 Sodium 138 (136-145) mEq/L Potassium 4.7 (3.5-5.1) mEq/L Chloride 106 (98-107) mEq/L Carbon Dioxide 23 (23-29) mEq/L BUN 25 H (8-23) mg/dL Creatinine 1.58 H (0.60-1.20) mg/dL Glucose 201 H (70-105) mg/dL Calcium 7.9 L (8.6-10.3) mg/dL Adrenal panel 08/22/17 Range/Units 05:46 Sodium 138 (136-145) mEq/L Potassium 4.7 (3.5-5.1) mEq/L Chloride 106 (98-107) mEq/L Carbon Dioxide 23 (23-29) mEq/L BUN 25 H (8-23) mg/dL Creatinine 1.58 H (0.60-1.20) mg/dL Glucose 201 H (70-105) mg/dL Calcium 7.9 L (8.6-10.3) mg/dL - VTE Documentation of Mechanical Device: Intermittent pneumatic compression device Consult Discharge Plan - Plan Referrals: Curt Rosenbaum MD [Primary Care Provider] - <Yuliet Bradley - Last Filed: 08/22/17 10:08> Date of Encounter: 08/22/17 - Assessment and Plan (1) HTN (hypertension) Current Visit: Yes Status: Chronic Qualifiers: Hypertension type: essential hypertension Qualified Code(s): I10 - Essential (primary) hypertension (2) HLD (hyperlipidemia) Current Visit: Yes Status: Chronic continue home meds Qualifiers: Hyperlipidemia type: unspecified Qualified Code(s): E78.5 - Hyperlipidemia , unspecified (3) DM (diabetes mellitus), type 2 with renal complications Current Visit: Yes Status: Chronic Qualifiers: Diabetes mellitus mcfp insulin use: with mcfp use Diabetes mellitus complication detail: with chronic kidney disease Chronic kidney disease stage: stage 3 (moderate) Qualified Code(s): E11.22 - Type 2 diabetes mellitus with diabetic chronic kidney disease; N18.3 - Chronic kidney disease, stage 3 (moderate); Z79.4 - longterm (current) use of insulin (4) Perirectal abscess Current Visit: Yes Status: Acute pod 1 I/D perirectal abscess pain improved, taking prn pain medication continue antibiotics trend wbc continue diabetic diet gi/dvt prophylaxis will have packing removed later today and she will then start stiz baths continue stool softeners (5) Acute kidney injury superimposed on CKD Current Visit: Yes Status: Acute likely due to iv contrast given for CT Subjective Patient reports: feels better, still having pain, pain is less, tolerating a regular diet, flatus, no bowel movement, afebrile Objective Vital Signs - Last 8 Hours Temp Pulse Resp BP Pulse Ox 08/22/17 08:26 118/53 08/22/17 08:08 98/55 08/22/17 07:07 97.7 F 62 17 91/57 94 08/22/17 03:33 99.4 F 64 15 92/50 96 08/22/17 02:44 98.3 F 64 14 90/53 96 Intake and Output 08/21/17 08/22/17 08/22/17 23:59 07:59 15:59 Intake Total 240 / 240 500 / 500 1360 / 1360 Output Total 0 / 0 Balance 237 / 237 500 / 500 1360 / 1360 Intake: IV Fluids 1000 / 1000 0.9 % Sodium Chloride 1,000 ML 1000 / 1000 @ 120 mls/hr IVC .Q8H20M [facility] Rx #:[id number] Oral 240 / 240 500 / 500 360 / 360 Output: Urine 0 / 0 Estimated Blood Loss Other: Meal Breakfast Percent of Meal Consumed 100% Weight 140 kg Blood Glucose* 164 175 Patient Weight 08/22/17 23:59 Weight 140 kg - General physical appearance well developed, no distress, obese - Eyes PERRL, normal ocular movement - ENT normal mucosa, normocephalic - Neck Neck exam: trachea midline - Respiratory normal expansion, normal respiratory effort - Cardiovascular Cardiovascular exam: Present: RRR - Abdomen Abdomen: Present: soft, non tender - Incision Incision: Present: clean and dry, open - Integumentary no growths - Neurologic CN 2-12 grossly intact - Musculoskeletal normal posture - Psychiatric oriented to time, oriented to person, oriented to place, speech is normal, memory intact - Labs 08/22/17 05:46 08/22/17 05:46 Diabetes panel 08/22/17 Range/Units 05:46 Sodium 138 (136-145) mEq/L Potassium 4.7 (3.5-5.1) mEq/L Chloride 106 (98-107) mEq/L Carbon Dioxide 23 (23-29) mEq/L BUN 25 H (8-23) mg/dL Creatinine 1.58 H (0.60-1.20) mg/dL Glucose 201 H (70-105) mg/dL Calcium 7.9 L (8.6-10.3) mg/dL Calcium panel 08/22/17 Range/Units 05:46 Calcium 7.9 L (8.6-10.3) mg/dL Pituitary panel 08/22/17 Range/Units 05:46 Sodium 138 (136-145) mEq/L Potassium 4.7 (3.5-5.1) mEq/L Chloride 106 (98-107) mEq/L Carbon Dioxide 23 (23-29) mEq/L BUN 25 H (8-23) mg/dL Creatinine 1.58 H (0.60-1.20) mg/dL Glucose 201 H (70-105) mg/dL Calcium 7.9 L (8.6-10.3) mg/dL Adrenal panel 08/22/17 Range/Units 05:46 Sodium 138 (136-145) mEq/L Potassium 4.7 (3.5-5.1) mEq/L Chloride 106 (98-107) mEq/L Carbon Dioxide 23 (23-29) mEq/L BUN 25 H (8-23) mg/dL Creatinine 1.58 H (0.60-1.20) mg/dL Glucose 201 H (70-105) mg/dL Calcium 7.9 L (8.6-10.3) mg/dL - Attending Attestation I have personally performed a face to face evaluation on this patient. I have reviewed and agree with the care plan. History and Exam by me shows:
[2017-08-22] MEDS: Loratadine 10 MG TABLET PO SCH (19:47)
[2017-08-22] MEDS ORDERED: Loratadine 10 MG TABLET PO SCH (21:00)
[2017-08-23] MEDS: 0.9 % Sodium Chloride 1,000 ML IVC SCH ×4 (00:55→20:58)
[2017-08-23] MEDS: *HR* OxyCODONE/APAP 5/325 TABLET PO SCH ×2 (04:44→08:28)
[2017-08-23] MEDS: Piperacillin/Tazobactam 3.375 GM in 0.9 % Sodium Chloride Mini Bag 100 ML IVPB SCH ×3 (04:44→21:04)
[2017-08-23 05:56] LABS: Basophils # 0.1 K/mcL (0.0-0.2); Basophils % 0.5 %; Eosinophils # 0.3 K/mcL (0.0-0.6); Hematocrit 37.6 % (35.3-44.9); Hemoglobin 11.7 g/dL (11.5-15.4); Immature Granulocytes % 2.3 % (0-4); Lymphocytes # 4.2 K/mcL (0.6-4.6); Mean Corpuscular HGB Conc 31.1 g/dL (31.6-35.5); Mean Corpuscular Hemoglobin 28.8 pg (28.0-33.3); Mean Corpuscular Volume 92.6 fL (83.0-100.0); Mean Platelet Volume 10.2 fL (9.4-12.4); Monocytes # 0.9 K/mcL (0.0-1.3); Monocytes % 6.4 %; Neutrophils # 7.9 K/mcL (1.6-8.9); Platelet Count 205 K/mcL (140-400); Red Blood Count 4.06 M/mcL (3.82-4.97); Red Cell Distribution Width 13.6 % (11.5-14.5); Segmented Neutrophils % 57.8 %
[2017-08-23 06:13] LABS: Calcium 7.3 mg/dL (8.6-10.3); Potassium 4.6 mEq/L (3.5-5.1)
[2017-08-23] MEDS: *HR* Glimepiride 2 MG TABLET PO SCH (08:28)
[2017-08-23] MEDS: Isosorbide MONOnitrate (24 HR) 30 MG TAB.ER.24H PO SCH (08:28)
--- NOTE | 2017-08-23 08:28 | General Surgery Progress Note ---
Date of Encounter: 08/23/17 Time of Encounter: 08:25 - Assessment and Plan (1) HTN (hypertension) Current Visit: Yes Status: Chronic controlled, continue home meds Qualifiers: Hypertension type: essential hypertension Qualified Code(s): I10 - Essential (primary) hypertension (2) HLD (hyperlipidemia) Current Visit: Yes Status: Chronic continue home meds Qualifiers: Hyperlipidemia type: unspecified Qualified Code(s): E78.5 - Hyperlipidemia , unspecified (3) DM (diabetes mellitus), type 2 with renal complications Current Visit: Yes Status: Chronic continue home meds MBS controlled Qualifiers: Diabetes mellitus alf insulin use: with supervisor microbiology technologists use Diabetes mellitus complication detail: with chronic kidney disease Chronic kidney disease stage: stage 3 (moderate) Qualified Code(s): E11.22 - Type 2 diabetes mellitus with diabetic chronic kidney disease; N18.3 - Chronic kidney disease, stage 3 (moderate); 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.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 of 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 (4) Perirectal abscess Current Visit: Yes Status: Acute pod 2 I/D perirectal abscess pain improved, taking prn pain medication continue antibiotics trend wbc continue diabetic diet gi/dvt prophylaxis stiz baths TID and after bm's continue stool softeners (5) Acute kidney injury superimposed on CKD Current Visit: Yes Status: Acute likely due to iv contrast given for CT continue ivf consult to nephrology Subjective Patient reports: no new complaints, feels better, still having pain, pain is less, tolerating a regular diet (diabetic), flatus, afebrile Objective Vital Signs - Last 8 Hours Temp Pulse Resp BP Pulse Ox 08/23/17 06:42 97.9 F 65 15 104/49 94 08/23/17 03:53 98.4 F 66 15 116/60 91 Intake and Output 08/22/17 08/23/17 08/23/17 23:59 07:59 15:59 Intake Total 1840 / 1840 1700 / 1700 Output Total 0 / 0 500 / 500 Balance 1840 / 1840 1200 / 1200 Intake: IV Fluids 1100 / 1100 1100 / 1100 0.9 % Sodium Chloride 1,000 ML 1000 / 1000 1000 / 1000 @ 120 mls/hr IVC .Q8H20M [facility] Rx #:[id number] Zosyn 3.375 GM In 0.9 % Sodium 100 / 100 100 / 100 Chloride (Mini-Bag +) 100 ML @ 25 mls/hr IVPB Q8H [facility] Rx#: [id number] Oral 740 / 740 600 / 600 Output: Urine 0 / 0 500 / 500 Other: Percent of Meal Consumed 100% Weight 140.1 kg Blood Glucose* 145 159 - General physical appearance well developed, well nourished, no distress, obese - Eyes normal ocular movement - ENT normal mucosa, normocephalic - Neck Neck exam: trachea midline - Respiratory normal expansion, normal respiratory effort - Cardiovascular Cardiovascular exam: Present: RRR - Abdomen Abdomen: Present: bowel sounds present, soft, non tender - Incision Incision: Present: clean and dry, indurated, open - Musculoskeletal normal gait, normal posture - Psychiatric oriented to time, oriented to person, oriented to place, memory intact - Labs 08/23/17 05:35 08/23/17 05:35 Diabetes panel 08/23/17 Range/Units 05:35 Sodium 134 L (136-145) mEq/L Potassium 4.6 (3.5-5.1) mEq/L Chloride 107 (98-107) mEq/L Carbon Dioxide 16 L (23-29) mEq/L BUN 33 H (8-23) mg/dL Creatinine 2.05 H (0.60-1.20) mg/dL Glucose 157 H (70-105) mg/dL Calcium 7.3 L (8.6-10.3) mg/dL Calcium panel 08/23/17 Range/Units 05:35 Calcium 7.3 L (8.6-10.3) mg/dL Pituitary panel 08/23/17 Range/Units 05:35 Sodium 134 L (136-145) mEq/L Potassium 4.6 (3.5-5.1) mEq/L Chloride 107 (98-107) mEq/L Carbon Dioxide 16 L (23-29) mEq/L BUN 33 H (8-23) mg/dL Creatinine 2.05 H (0.60-1.20) mg/dL Glucose 157 H (70-105) mg/dL Calcium 7.3 L (8.6-10.3) mg/dL Adrenal panel 08/23/17 Range/Units 05:35 Sodium 134 L (136-145) mEq/L Potassium 4.6 (3.5-5.1) mEq/L Chloride 107 (98-107) mEq/L Carbon Dioxide 16 L (23-29) mEq/L BUN 33 H (8-23) mg/dL Creatinine 2.05 H (0.60-1.20) mg/dL Glucose 157 H (70-105) mg/dL Calcium 7.3 L (8.6-10.3) mg/dL - VTE Documentation of Mechanical Device: Intermittent pneumatic compression device Consult Discharge Plan - Plan Referrals: Ilsa,Curt Evans MD [Primary Care Provider] -
[2017-08-23] MEDS: Insulin LISPRO 300 UNITS/3 ML VIAL SQ SCH ×5 (08:29→16:43)
[2017-08-23] MEDS ORDERED: *HR* OxyCODONE/APAP 5/325 TABLET PO PRN (09:34)
--- NOTE | 2017-08-23 11:18 | Nephrology Consult Note ---
Date of Encounter: 08/23/17 Time of Encounter: 10:00 Assessment and Plan (1) Acute kidney injury superimposed on CKD Current Visit: Yes Status: Acute 08/21 CT abd/pelvis with contrast <48hr acute rise in serum creatinine (baseline 1.2) and lowering of GFR from baseline (baseline mid 40s CKD stage 3) Patient had episode of borderline hypotension 08/22; 90/53 Assess this is mixed pre-renal and renal P: Agree with holding amanuel-i; continue avoiding nephrotoxic agents UOP reassuring; continue IV hydration, expect improvement of crcl more gradually due to likely contrast injury Recommend dosing Zosyn renally [GFR 20-40]: 2.25 gm q6h. Ordering UA, Urine Sodium Urine Creatinine, CPK, Urine Urea, No ultrasound indicated at this time (2) Perirectal abscess Current Visit: Yes Status: Acute POD#2 daniel-rectal abscess I/D; down-trending wt ct; afebrile On Zosyn Recommend renal dosing of [GFR 20-40]: 2.25 gm q6h. 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 Patient consulted in setting of increased serum creatinine of 2.05, baseline creatinine 1.2; GFR baseline 40s, currently mid 20s; patient responding to IVF based on reassuring urine output increase today. She denies fever, chest discomfort, shortness of breath, or dysuria. She takes Lisinopril at home, which was held in setting of CONNOR. She has a downtrending wt ct and no fever; she was hypotensive on the 2nd, which is being address as well. Past Med Surg Social Fam HX - Past Medical History Medical history: coronary artery disease, diabetes, hyperlipidemia, hypertension , other Additional medical history: NEUROPATHY, CATARACTS, CELLULITIS, history pancreatitis, history perirectal abscess/I&D, CKD3 Psychiatric history: no psych history - Past Surgical History Surgical History: cholecystectomy, orthopedic, other, NATALIYA/BSO, other Additional surgical history: RT/LT ROTATOR CUFF REPAIR 09/06/08, HEART CATH AND 08/22/10, RECTAL ABSCESS 07/05 CARPAL TUNNEL REPAIR - Social History Smoking Status: Never smoker Smokeless Tobacco Status: No Alcohol use: none Drug use: none - Family History Father Adopted: No Living Status: Hx Family Cardiac Disorders: No Hx Family Respiratory Disorders: Yes Hx Family Cancer: No Hx Family GI Disorders: No Hx Family Endocrine Disorder: No Hx Family Neuromuscular Disorders: No Hx Family Neurologic Disorders: No Hx Family HEENT Disorders: No Hx Family Autoimmune Disorders: No Mother Adopted: No Living Status: Hx Family Cardiac Disorders: Yes Hx Family Respiratory Disorders: No Hx Family Cancer: Yes Hx Family GI Disorders: No Hx Family Endocrine Disorder: No Hx Family Neurologic Disorders: No Hx Family HEENT Disorders: No Hx Family Autoimmune Disorders: No Medications and Allergies Aspirin [Lo-Dose Aspirin EC] 81 mg PO DAILY 08/22/17 [History] Carvedilol [Coreg] 25 mg PO BID 08/22/17 [History] Glimepiride [Amaryl] 2 mg PO BID 08/22/17 [History] Insulin Glargine,Hum.rec.anlog [Lantus Solostar] 56 unit SQ HS PRN 08/22/17 [ History] Insulin LISPRO [Humalog Kwikpen U-100] 15 unit SQ BID 08/22/17 [History] Isosorbide MONOnitrate (24 HR) [Imdur] 30 mg PO BID 08/22/17 [History] Lisinopril [Zestril] 20 mg PO DAILY 08/22/17 [History] Lovastatin 40 mg PO DAILY 08/22/17 [History] Xyzal 5 mg PO DAILY 08/22/17 [History] 3 Allergy/AdvReac Type Severity Reaction Status Date / Time atorvastatin [From Lipitor] Allergy Rash Verified 08/21/17 16:56 codeine Allergy rash and Verified 08/23/17 09:15 possible breathing problems ibuprofen Allergy Rash Verified 08/21/17 16:56 NSAIDS (Non-Steroidal Allergy Rash Verified 08/23/17 09:15 Anti-Inflamma pioglitazone [From Actos] Allergy Rash Verified 08/21/17 16:56 Sulfa (Sulfonamide Allergy Hives Verified 08/21/17 16:56 Antibiotics) tramadol Allergy Rash Verified 08/21/17 16:56 HYDROCHLORIDE SALSALATE Allergy See Uncoded 11/22/14 14:43 Comments IVP DYE AdvReac Difficulty Uncoded 11/22/14 14:42 Breathing Review of Systems All Systems: reviewed and no additional remarkable complaints except as stated Exam - Vital Signs Vital signs: Initial Vital Signs Temp Pulse Resp BP Pulse Ox 98.0 F 80 16 186/79 98 08/21/17 16:55 08/21/17 16:55 08/21/17 16:55 08/21/17 16:55 08/21/17 16:55 Vital Signs - Last 8 Hours Temp Pulse Resp BP Pulse Ox 08/23/17 10:44 97.8 F 66 16 109/69 94 08/23/17 06:42 97.9 F 65 15 104/49 94 08/23/17 03:53 98.4 F 66 15 116/60 91 Intake and Output 08/22/17 08/23/17 08/23/17 23:59 07:59 15:59 Intake Total 1840 / 1840 1700 / 1700 340 / 340 Output Total 0 / 0 500 / 500 500 / 500 Balance 1840 / 1840 1200 / 1200 -160 / -160 Intake: IV Fluids 1100 / 1100 1100 / 1100 100 / 100 0.9 % Sodium Chloride 1,000 ML 1000 / 1000 1000 / 1000 @ 120 mls/hr IVC .Q8H20M [facility] Rx #:[id number] Zosyn 3.375 GM In 0.9 % Sodium 100 / 100 100 / 100 100 / 100 Chloride (Mini-Bag +) 100 ML @ 25 mls/hr IVPB Q8H [facility] Rx#: [id number] Oral 740 / 740 600 / 600 240 / 240 Output: Urine 0 / 0 500 / 500 500 / 500 Other: Meal Breakfast Percent of Meal Consumed 100% 100% Weight 140.1 kg Blood Glucose* 145 159 121 - General Appearance General appearance: well-developed, well-nourished, appears started age Respiratory: no kyphosis, no scoliosis Cardiology: no murmurs, no rub, no gallops, no edema, regular rate, regular rhythm, normal S1, normal S2 Gastrointestinal: no tenderness Integumentary: no rash, warm and dry Neurologic: no focal deficit, no asterixis, alert and oriented x3, reflexes 2+ and symmetric, gait normal, strength 5/5 Musculoskeletal: no deformities, no erythema, no cyanosis, no clubbing Psychiatric: mood/affect appropriate, cooperative Results - Lab Results 08/23/17 05:35 08/23/17 05:35 Most recent lab results Calcium 7.3 mg/dL (8.6-10.3) L 08/23/17 05:35 Consult Discharge Plan - Plan Referrals: Curt Rosenbaum MD [Primary Care Provider] -
[2017-08-23 15:43] LABS: Bilirubin,Urine Negative (Negative); Blood,Urine Negative (Negative); Clarity,Urine Clear (Clear); Color,Urine Yellow (Yellow); Glucose,Urine (UA) Normal (Normal); Ketones,Urine Negative (Negative); Leukocyte Esterase,Urine Small (Negative); Nitrite,Urine Negative (Negative); Protein,Urine Trace mg/dL (Neg-Trace); Specific Gravity,Urine 1.016 (1.010-1.025); Urobilinogen,Urine Normal (Normal)
[2017-08-23 15:45] LABS: Bacteria,Urine None Seen per hpf (None-Few); Hyaline Casts,Urine None Seen per lpf (None-Few); RBC,Urine 0-3 per hpf (0-3); Squamous Epithelial Cell,Urine Many per lpf (None-Few)
[2017-08-23 16:48] LABS: Sodium, Urine 39.4 mEq/L
[2017-08-23] MEDS: Loratadine 10 MG TABLET PO SCH (20:13)
[2017-08-23] MEDS: Acetaminophen 325 MG TABLET PO PRN (23:42)
[2017-08-24 02:03] LABS: Basophils # 0.1 K/mcL (0.0-0.2); Basophils % 0.5 %; Eosinophils # 0.2 K/mcL (0.0-0.6); Eosinophils % 1.9 %; Hematocrit 33.5 % (35.3-44.9); Hemoglobin 10.6 g/dL (11.5-15.4); Immature Granulocytes % 2.1 % (0-4); Lymphocytes # 2.5 K/mcL (0.6-4.6); Lymphocytes % 20.1 %; Mean Corpuscular HGB Conc 31.6 g/dL (31.6-35.5); Mean Corpuscular Volume 91.8 fL (83.0-100.0); Mean Platelet Volume 10.5 fL (9.4-12.4); Monocytes # 0.8 K/mcL (0.0-1.3); Monocytes % 6.6 %; Neutrophils # 8.4 K/mcL (1.6-8.9); Platelet Count 203 K/mcL (140-400); Red Blood Count 3.65 M/mcL (3.82-4.97); Red Cell Distribution Width 13.7 % (11.5-14.5); Segmented Neutrophils % 68.8 %
[2017-08-24 02:25] LABS: Calcium 7.5 mg/dL (8.6-10.3); Potassium 4.7 mEq/L (3.5-5.1)
[2017-08-24] MEDS: Piperacillin/Tazobactam 3.375 GM in 0.9 % Sodium Chloride Mini Bag 100 ML IVPB SCH ×3 (05:38→20:30)
[2017-08-24] MEDS: Isosorbide MONOnitrate (24 HR) 30 MG TAB.ER.24H PO SCH (09:28)
[2017-08-24] MEDS: *HR* Glimepiride 2 MG TABLET PO SCH (09:28)
[2017-08-24] MEDS: Insulin LISPRO 300 UNITS/3 ML VIAL SQ SCH ×5 (09:30→18:18)
[2017-08-24] MEDS: Lisinopril 20 MG TABLET PO SCH (09:31)
--- NOTE | 2017-08-24 12:48 | Nephrology Progress Note ---
Date of Encounter: 08/24/17 Time of Encounter: 12:00 - Assessment and Plan (1) Acute kidney injury superimposed on CKD Current Visit: Yes Status: Acute Scr improving again at 1.86, GFR 27 which is reassuring. 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 Would prefer another hospital day to see continued Scr drop but not necessary if pt gets a repeat BMPwithin a week and followup with me in 2-4 weeks Continue to avoid nephrotoxins if possible Encourage po fluid as well Objective - Vital Signs Vital signs: Vital Signs Temp Pulse Resp BP Pulse Ox 08/24/17 11:24 99.8 F H 65 15 114/54 90 08/24/17 07:48 99.3 F 70 16 135/63 93 08/24/17 03:50 99.0 F 75 18 100/64 90 08/23/17 23:28 100.1 F H 77 18 125/52 90 08/23/17 19:05 99.0 F 75 18 107/67 90 08/23/17 14:31 98.3 F 66 15 105/52 95 Intake and Output 08/23/17 08/24/17 08/24/17 23:59 07:59 15:59 Intake Total 1340 / 1340 620 / 620 120 / 120 Output Total 0 / 0 950 / 950 0 / 0 Balance 1340 / 1340 -330 / -330 120 / 120 Intake: IV Fluids 1100 / 1100 100 / 100 0.9 % Sodium Chloride 1,000 ML 1000 / 1000 @ 120 mls/hr IVC .Q8H20M [facility] Rx #:[id number] Zosyn 3.375 GM In 0.9 % Sodium 100 / 100 100 / 100 Chloride (Mini-Bag +) 100 ML @ 25 mls/hr IVPB Q8H [facility] Rx#: [id number] Oral 240 / 240 520 / 520 120 / 120 Output: Urine 0 / 0 950 / 950 0 / 0 Other: Meal Dinner Percent of Meal Consumed 100% Weight 140.5 kg Blood Glucose* 169 213 221 Patient Weight 08/24/17 23:59 Weight 140.5 kg - Lab 08/24/17 01:25 08/24/17 01:25 Most recent lab results Calcium 7.5 mg/dL (8.6-10.3) L 08/24/17 01:25 Urine Creatinine 84 mg/dL 08/23/17 14:50 Urine Sodium 39.4 mEq/L 08/23/17 14:50 - VTE Documentation of Mechanical Device: Intermittent pneumatic compression device Consult Discharge Plan - Plan Referrals: Ilsa,Curt Evans MD [Primary Care Provider] -
--- NOTE | 2017-08-24 12:58 | General Surgery Progress Note ---
Date of Encounter: 08/24/17 Time of Encounter: 12:45 - Assessment and Plan (1) Perirectal abscess Current Visit: Yes Status: Acute POD #3 I/D perirectal abscess with Dr. Bradley pain improved, taking prn pain medication continue antibiotics- Zosyn (gram positive cocci continue diabetic diet gi/dvt prophylaxis stiz baths TID and after bm's continue stool softeners Repeat am labs- CBC, BMP (2) Acute kidney injury superimposed on CKD Current Visit: Yes Status: Acute Nephrology following Cr- 2.05>1.86 IV fluids Avoid nephrotoxic medications Subjective Patient reports: no new complaints, feels better, still having pain, pain is less, tolerating a regular diet, voiding w/o difficulty, flatus, bowel movement , diarrhea, fever (Tmax 100.1, Tcurrent 99.8) Objective Vital Signs - Last 8 Hours Temp Pulse Resp BP Pulse Ox 08/24/17 11:24 99.8 F H 65 15 114/54 90 08/24/17 07:48 99.3 F 70 16 135/63 93 Intake and Output 08/23/17 08/24/17 08/24/17 23:59 07:59 15:59 Intake Total 1340 / 1340 620 / 620 120 / 120 Output Total 0 / 0 950 / 950 0 / 0 Balance 1340 / 1340 -330 / -330 120 / 120 Intake: IV Fluids 1100 / 1100 100 / 100 0.9 % Sodium Chloride 1,000 ML 1000 / 1000 @ 120 mls/hr IVC .Q8H20M [facility] Rx #:[id number] Zosyn 3.375 GM In 0.9 % Sodium 100 / 100 100 / 100 Chloride (Mini-Bag +) 100 ML @ 25 mls/hr IVPB Q8H [facility] Rx#: [id number] Oral 240 / 240 520 / 520 120 / 120 Output: Urine 0 / 0 950 / 950 0 / 0 Other: Meal Dinner Percent of Meal Consumed 100% Weight 140.5 kg Blood Glucose* 169 213 221 Patient Weight 08/24/17 23:59 Weight 140.5 kg - General physical appearance well developed, well nourished, obese - Eyes normal ocular movement - ENT normal mucosa, atraumatic, normocephalic - Neck Neck exam: trachea midline - Respiratory normal respiratory effort, clear to auscultation, other (diminished bibasilar bases) - Cardiovascular Cardiovascular exam: Present: RRR - Abdomen Abdomen: Present: bowel sounds present, soft, non tender - Incision Incision: Present: open (Open wound with dressing clean, dry and intact ( changed per RN this morning after BM)) - Neurologic CN 2-12 grossly intact - Musculoskeletal normal gait, normal posture - Psychiatric oriented to time, oriented to person, oriented to place, speech is normal, memory intact - Labs 08/24/17 01:25 08/24/17 01:25 Diabetes panel 08/24/17 Range/Units 01:25 Sodium 136 (136-145) mEq/L Potassium 4.7 (3.5-5.1) mEq/L Chloride 106 (98-107) mEq/L Carbon Dioxide 22 L (23-29) mEq/L BUN 31 H (8-23) mg/dL Creatinine 1.86 H (0.60-1.20) mg/dL Glucose 211 H (70-105) mg/dL Calcium 7.5 L (8.6-10.3) mg/dL Calcium panel 08/24/17 Range/Units 01:25 Calcium 7.5 L (8.6-10.3) mg/dL Pituitary panel 08/24/17 Range/Units 01:25 Sodium 136 (136-145) mEq/L Potassium 4.7 (3.5-5.1) mEq/L Chloride 106 (98-107) mEq/L Carbon Dioxide 22 L (23-29) mEq/L BUN 31 H (8-23) mg/dL Creatinine 1.86 H (0.60-1.20) mg/dL Glucose 211 H (70-105) mg/dL Calcium 7.5 L (8.6-10.3) mg/dL Adrenal panel 08/24/17 Range/Units 01:25 Sodium 136 (136-145) mEq/L Potassium 4.7 (3.5-5.1) mEq/L Chloride 106 (98-107) mEq/L Carbon Dioxide 22 L (23-29) mEq/L BUN 31 H (8-23) mg/dL Creatinine 1.86 H (0.60-1.20) mg/dL Glucose 211 H (70-105) mg/dL Calcium 7.5 L (8.6-10.3) mg/dL - VTE Documentation of Mechanical Device: Intermittent pneumatic compression device Consult Discharge Plan - Plan Referrals: Curt Rosenbaum MD [Primary Care Provider] - - Attending Attestation For this encounter, I have reviewed the BRUSH CLEARER SURVEYING or PA documentation, treatment plan, and medical decision making; and I have had face to face time with this patient.
[2017-08-24] MEDS: Acetaminophen 325 MG TABLET PO PRN (18:36)
[2017-08-24] MEDS: 0.9 % Sodium Chloride 1,000 ML IVC SCH ×2 (20:29→20:34)
[2017-08-24] MEDS: Loratadine 10 MG TABLET PO SCH (20:29)
[2017-08-25] MEDS: 0.9 % Sodium Chloride 1,000 ML IVC SCH (05:15)
[2017-08-25] MEDS: Acetaminophen 325 MG TABLET PO PRN (05:15)
[2017-08-25] MEDS: Piperacillin/Tazobactam 3.375 GM in 0.9 % Sodium Chloride Mini Bag 100 ML IVPB SCH (05:20)
[2017-08-25 06:40] VITALS: BP 114/62
[2017-08-25 06:50] LABS: Basophils % 0.4 %; Eosinophils # 0.1 K/mcL (0.0-0.6); Eosinophils % 1.2 %; Hematocrit 31.8 % (35.3-44.9); Hemoglobin 9.9 g/dL (11.5-15.4); Immature Granulocytes % 2.2 % (0-4); Lymphocytes % 17.8 %; Mean Corpuscular HGB Conc 31.1 g/dL (31.6-35.5); Mean Corpuscular Hemoglobin 28.2 pg (28.0-33.3); Mean Corpuscular Volume 90.6 fL (83.0-100.0); Mean Platelet Volume 9.7 fL (9.4-12.4); Monocytes # 0.9 K/mcL (0.0-1.3); Monocytes % 7.9 %; Neutrophils # 7.9 K/mcL (1.6-8.9); Platelet Count 200 K/mcL (140-400); Red Blood Count 3.51 M/mcL (3.82-4.97); Red Cell Distribution Width 13.8 % (11.5-14.5); Segmented Neutrophils % 70.5 %
[2017-08-25 07:10] LABS: Calcium 7.9 mg/dL (8.6-10.3); Potassium 4.8 mEq/L (3.5-5.1)
[2017-08-25] MEDS: Insulin LISPRO 300 UNITS/3 ML VIAL SQ SCH ×2 (07:44→09:09)
[2017-08-25] MEDS: Isosorbide MONOnitrate (24 HR) 30 MG TAB.ER.24H PO SCH (09:07)
[2017-08-25] MEDS: *HR* Glimepiride 2 MG TABLET PO SCH (09:08)
[2017-08-25] MEDS: Lisinopril 20 MG TABLET PO SCH (09:08)
--- NOTE | 2017-08-25 09:32 | Discharge Summary ---
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 insulin use: with intermediate card tender use Diabetes mellitus complication detail: with chronic kidney disease Chronic kidney disease stage: stage 3 (moderate) Qualified Code(s): E11.22 - Type 2 diabetes mellitus with diabetic chronic kidney disease; N18.3 - Chronic kidney disease, stage 3 (moderate); 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.4 - terminal clerk (current) use of insulin (4) HTN (hypertension) Priority: Secondary Status: Chronic Qualifiers: Hypertension type: essential hypertension Qualified Code(s): I10 - Essential (primary) hypertension General Surgery Exam Initial Vital Signs Temp Pulse Resp BP Pulse Ox 98.0 F 80 16 186/79 98 08/21/17 16:55 08/21/17 16:55 08/21/17 16:55 08/21/17 16:55 08/21/17 16:55 Vital Signs Temp Pulse Resp BP Pulse Ox 08/25/17 06:35 98.2 F 73 18 114/62 90 08/25/17 04:24 99.0 F 77 18 119/72 93 08/25/17 00:00 98.4 F 77 16 110/69 94 08/24/17 20:24 99.4 F 72 16 113/67 94 08/24/17 15:35 99.1 F 70 18 138/75 95 08/24/17 11:24 99.8 F H 65 15 114/54 90 Intake and Output 08/24/17 08/25/17 08/25/17 23:59 07:59 15:59 Intake Total 240 / 240 1100 / 1100 100 / 100 Output Total 0 / 0 600 / 600 Balance 240 / 240 500 / 500 100 / 100 Intake: IV Fluids 1100 / 1100 0.9 % Sodium Chloride 1,000 ML 1000 / 1000 @ 120 mls/hr IVC .Q8H20M [facility] Rx #:[id number] Zosyn 3.375 GM In 0.9 % Sodium 100 / 100 Chloride (Mini-Bag +) 100 ML @ 25 mls/hr IVPB Q8H [facility] Rx#: [id number] Oral 240 / 240 0 / 0 100 / 100 Output: Urine 0 / 0 600 / 600 Other: Meal Dinner Breakfast Percent of Meal Consumed 100% 100% # Voids 1 # Bowel Movements 0 Blood Glucose* 135 187 VITAL SIGNS: Reviewed. See [facility] GENERAL: In no apparent distress. HEENT: Normocephalic, atraumatic, pupils are equal and reactive, extraocular motions intact, oropharynx is pink and moist, there is no neck adenopathy or JVD noted. CHEST/RESPIRATORY: The thorax is free from signs of trauma. Lung sounds: clear to auscultation, normal respiratory effort CARDIAC: Regular rate and rhythm. Normal S1 and S2, without murmurs, gallops, or rubs. VASCULAR: general Edema. 2+ peripheral pulses. ABDOMEN: soft, nontender INCISION: I&D site WNL. MUSCULOSKELETAL: Good range of motion of all major joints. Extremities without clubbing, cyanosis or edema. NEUROLOGIC EXAM: Alert and oriented x 3. Speech normal. Follows commands. PSYCHIATRIC: Mood normal. SKIN: No rash or lesions. Brawny lower extremities. - Hospital Course Hospital course: Ms. Francois is a 67 year old female who presented on 08/21/2017 for a perirectal abscess. She was taken to the OR where she underwent an incision and drainage of a perirectal abscess. Her postoperative course was complicated by IV contrast induced nephropathy. She was supported with IV fluids. Nephrology was consult did for further management. Her creatinine has resolved to baseline (1.25). She is ambulating avoiding without difficulty, tolerating a diet without nausea or vomiting, vital signs are stable. We will begin discharge planning to home with a follow-up with her renal Dr. in approximately 2 weeks as previously scheduled (per report she has labs already scheduled), and a surgical follow-up in one week. - Time Spent with Patient Total time spent providing and/or coordinating discharge services: - Discharge Medications Prescriptions: Amoxicillin/Clavulanate [Augmentin] 875 mg PO BIDWM #14 tablet Home Medications: Aspirin [Lo-Dose Aspirin EC] 81 mg PO DAILY 08/22/17 [History] Carvedilol [Coreg] 25 mg PO BID 08/22/17 [History] Glimepiride [Amaryl] 2 mg PO BID 08/22/17 [History] Insulin Glargine,Hum.rec.anlog [Lantus Solostar] 56 unit SQ HS PRN 08/22/17 [ History] Insulin LISPRO [Humalog Kwikpen U-100] 15 unit SQ BID 08/22/17 [History] Isosorbide MONOnitrate (24 HR) [Imdur] 30 mg PO BID 08/22/17 [History] Lisinopril [Zestril] 20 mg PO DAILY 08/22/17 [History] Lovastatin 40 mg PO DAILY 08/22/17 [History] Xyzal 5 mg PO DAILY 08/22/17 [History] Amoxicillin/Clavulanate [Augmentin] 875 mg PO BIDWM #14 tablet 08/25/17 [Rx] Allergies/Adverse Reactions: 3 Allergy/AdvReac Type Severity Reaction Status Date / Time atorvastatin [From Lipitor] Allergy Rash Verified 08/21/17 16:56 codeine Allergy rash and Verified 08/23/17 09:15 possible breathing problems ibuprofen Allergy Rash Verified 08/21/17 16:56 NSAIDS (Non-Steroidal Allergy Rash Verified 08/23/17 09:15 Anti-Inflamma pioglitazone [From Actos] Allergy Rash Verified 08/21/17 16:56 Sulfa (Sulfonamide Allergy Hives Verified 08/21/17 16:56 Antibiotics) tramadol Allergy Rash Verified 08/21/17 16:56 HYDROCHLORIDE SALSALATE Allergy See Uncoded 11/22/14 14:43 Comments IVP DYE AdvReac Difficulty Uncoded 11/22/14 14:42 Breathing Date of admission: 08/21/17 21:32 Primary care physician: Curt Rosenbaum MD Consults: 08/22/17 09:32 Consult to Coupon Redemption Clerk [CONS] Routine Reason for SW Consult: wound care. will need home health for packing 08/23/17 08:17 Consult to Nephrology [CONS] Routine Consulting Provider: Kidney Glenna/CISCO/EDUARD/MALACHI Reason for Consult: Acute on chronic kidney injury. Creat increased 2.0 despite fluids. s/p CT with IV contrast Time Notified: 08:18 Call Completed: Yes 08/23/17 08:19 Consult to Nephrology [CONS] Routine Consulting Provider: Kidney Glenna/CISCO/EDUARD/MALACHI Reason for Consult: Acute kidney injury on CKD3 Time Notified: 08:19 Call Completed: Yes Discharging clinician: Dolores Hawkins Anticipated date of discharge: 08/25/17 Labs on day of discharge: Labs from last 24 hours 08/25/17 08/25/17 08/25/17 07:47 06:30 06:30 WBC 11.3 H RBC 3.51 L Hgb 9.9 L Hct 31.8 L MCV 90.6 MCH 28.2 MCHC 31.1 L RDW 13.8 Plt Count 200 MPV 9.7 Immature Gran % 2.2 Seg Neutrophils % 70.5 Lymphocytes % 17.8 Monocytes % 7.9 Eosinophils % 1.2 Basophils % 0.4 Neutrophils # 7.9 Lymphocytes # 2.0 Monocytes # 0.9 Eosinophils # 0.1 Basophils # 0.0 Sodium 136 Potassium 4.8 Chloride 110 H Carbon Dioxide 19 L BUN 28 H Creatinine 1.29 H Est GFR ( Amer) 50 L Est GFR (Non-Af Amer) 41 L BUN/Creatinine Ratio 22 Glucose 179 H POC Glucose 187 H Calculated Osmolality 292 Calcium 7.9 L 08/24/17 08/24/17 08/24/17 21:15 15:33 11:20 WBC RBC Hgb Hct MCV MCH MCHC RDW Plt Count MPV Immature Gran % Seg Neutrophils % Lymphocytes % Monocytes % Eosinophils % Basophils % Neutrophils # Lymphocytes # Monocytes # Eosinophils # Basophils # Sodium Potassium Chloride Carbon Dioxide BUN Creatinine Est GFR ( Amer) Est GFR (Non-Af Amer) BUN/Creatinine Ratio Glucose POC Glucose 135 H 117 H 221 H Calculated Osmolality Calcium 08/23/17 16:11 WBC RBC Hgb Hct MCV MCH MCHC RDW Plt Count MPV Immature Gran % Seg Neutrophils % Lymphocytes % Monocytes % Eosinophils % Basophils % Neutrophils # Lymphocytes # Monocytes # Eosinophils # Basophils # Sodium Potassium Chloride Carbon Dioxide BUN Creatinine Est GFR ( Amer) Est GFR (Non-Af Amer) BUN/Creatinine Ratio Glucose POC Glucose 110 H Calculated Osmolality Calcium Preliminary micro results at discharge 08/21/17 23:30 Wound Culture - Preliminary Buttock Streptococcus anginosus - Patient Status Disposition: Home, Self-Care Condition: Fair Functional capacity at discharge: independent ambulation Overall status at discharge: patient is progressing back to baseline - Discharge Instructions Follow Up With: Curt Rosenbaum MD [Primary Care Provider] - Mango Sanchez DO [Partnered Physician] - 09/13/17 3:40 pm Dolores Hawkins CNP [Advanced Practice Nurse] - 08/30/17 4:00 pm Additional Instructions: You do not need to continue packing the wound. Keep the area clean and dry. Wash daily with antibacterial soap and pat dry. Called the office or return to the emergency department for return of symptoms, fever greater than 100.5, or increased discomfort. Otherwise, follow-up as scheduled. - Diet and Activity Activity: increase activity as tolerated Diet: advance to your usual diet
== END 2017-08-25 12:08 | disposition home or self-care (01) ==
LOC: EMEROO 16:54 → 3ANU 16:54
PROVIDERS: ADMIT Surgery; ATTEND Surgery

== ENCOUNTER 2019-05-12 17:33 | Observation (INO) ==
[2019-05-12] MEDS ORDERED: *HR* HYDROmorphone (PF) 1 MG/ML SYRINGE IVP ONE (17:51)
[2019-05-12] MEDS ORDERED: Piperacillin/Tazobactam 3.375 GM in Water for inj. (sterile) 20 ML IVP ONE (17:51)
[2019-05-12] MEDS ORDERED: Isovue-370 500 ML BOTTLE IVP ONE (17:53)
[2019-05-12] MEDS ORDERED: Clindamycin 900 MG/50 ML 900 MG/50 ML IV.SOLN IVPB ONE (17:53)
[2019-05-12] MEDS ORDERED: Tdap (Boostrix) Vaccine 0.5 ML SYRINGE IM ONE (18:00)
[2019-05-12] MEDS ORDERED: Hydrocortisone Sodium Succ 100 MG/2 ML VIAL IVP ONE (18:07)
[2019-05-12 18:26] LABS: Basophils % 0.2 %; Eosinophils % 0.2 %; Hemoglobin 11.7 g/dL (11.5-15.4); Immature Granulocytes % 1.1 % (0-4); Lymphocytes # 1.8 K/mcL (0.6-4.6); Lymphocytes % 9.5 %; Mean Corpuscular HGB Conc 31.6 g/dL (31.6-35.5); Mean Corpuscular Hemoglobin 28.2 pg (28.0-33.3); Mean Corpuscular Volume 89.2 fL (83.0-100.0); Monocytes # 1.3 K/mcL (0.0-1.3); Monocytes % 6.7 %; Neutrophils # 15.3 K/mcL (1.6-8.9); Platelet Count 195 K/mcL (140-400); Red Blood Count 4.15 M/mcL (3.82-4.97); Red Cell Distribution Width 13.8 % (11.5-14.5); Segmented Neutrophils % 82.3 %; White Blood Count 18.6 K/mcL (4.3-11.1)
[2019-05-12 18:36] LABS: VBG HCO3 27 mEq/L (21-27); VBG PCO2 41 mmHg (41-51); VBG PH 7.43 pH Units (7.32-7.42); VBG PO2 110 mmHg (25-50)
[2019-05-12] MEDS: 0.9 % Sodium Chloride 1,000 ML IVC ONE ×2 (18:37→21:18)
[2019-05-12 18:48] LABS: Albumin 3.6 g/dL (3.5-5.7); Albumin/Globulin Ratio 1.1 (1.1-2.2); Bilirubin,Direct 0.5 mg/dL (0.0-0.2); Bilirubin,Indirect 0.6 mg/dL (0.0-1.0); Bilirubin,Total 1.1 mg/dL (0.3-1.0); Calcium 8.7 mg/dL (8.6-10.3); Globulin 3.2 g/dL (2.4-3.5); Potassium 4.4 mEq/L (3.5-5.1); Total Protein 6.8 g/dL (6.4-8.9)
[2019-05-12 18:50] LABS: Troponin I < 0.03 ng/mL (< 0.04)
[2019-05-12] MEDS ORDERED: 0.9 % Sodium Chloride 1,000 ML IVC ONE (19:10)
[2019-05-12 19:34] LABS: Bilirubin,Urine Negative (Negative); Blood,Urine Negative (Negative); Clarity,Urine Cloudy (Clear); Color,Urine Yellow (Yellow); Glucose,Urine (UA) Normal (Normal); Ketones,Urine Negative (Negative); Leukocyte Esterase,Urine Moderate (Negative); Nitrite,Urine Negative (Negative); PH,Urine 6.5 pH Units (5.0-8.0); Protein,Urine 100 mg/dL (Neg-Trace); Specific Gravity,Urine 1.014 (1.010-1.025); Urobilinogen,Urine Normal (Normal)
[2019-05-12 19:50] LABS: RBC,Urine 0-3 per hpf (0-3); Squamous Epithelial Cell,Urine Few per lpf (None-Few)
[2019-05-12 19:51] LABS: Bacteria,Urine Few per hpf (None-Few)
[2019-05-12] MEDS ORDERED: 0.9 % Sodium Chloride 1,000 ML IVC STA (21:20)
[2019-05-12] MEDS ORDERED: Naloxone 0.4 MG/ML INJ IVP PRN ×2 (23:12→23:16)
[2019-05-12] MEDS ORDERED: D5% in Water 1,000 ML IVC PRN (23:16)
[2019-05-12] MEDS ORDERED: *HR* Dextrose 50 % in Water (Syg) 50 ML SYRINGE IVP PRN (23:16)
[2019-05-12] MEDS ORDERED: Dextrose Gel 15 GM/37.5 ML TUBE PO PRN ×2 (23:16)
[2019-05-12] MEDS ORDERED: Vancomycin (wt based) 1,000 MG VIAL IVPB SCH (23:45)
[2019-05-12 23:56] LABS: Gamma Glutamyl Transpeptidase 77 Units/L (7-64)
[2019-05-13] MEDS: carvediloL 25 MG TABLET PO SCH ×3 (00:34→16:42)
[2019-05-13] MEDS: MetroNIDAZOLE 500 MG/100 ML 500 MG/100 ML BAG IVPB SCH ×5 (00:34→23:09)
[2019-05-13] MEDS: Insulin LISPRO 300 UNITS/3 ML VIAL SQ SCH ×5 (00:35→21:00)
[2019-05-13 02:01] LABS: INR 1.2; Prothrombin Time 13.6 Seconds (9.4-12.1)
[2019-05-13 02:04] LABS: Basophils # 0.1 K/mcL (0.0-0.2); Basophils % 0.3 %; Hemoglobin 11.6 g/dL (11.5-15.4); Immature Granulocytes % 1.3 % (0-4); Lymphocytes # 1.2 K/mcL (0.6-4.6); Lymphocytes % 5.8 %; Mean Corpuscular HGB Conc 31.4 g/dL (31.6-35.5); Mean Corpuscular Hemoglobin 28.4 pg (28.0-33.3); Mean Corpuscular Volume 90.7 fL (83.0-100.0); Mean Platelet Volume 10.3 fL (9.4-12.4); Monocytes # 0.7 K/mcL (0.0-1.3); Monocytes % 3.3 %; Neutrophils # 17.7 K/mcL (1.6-8.9); Platelet Count 202 K/mcL (140-400); Red Blood Count 4.08 M/mcL (3.82-4.97); Red Cell Distribution Width 13.8 % (11.5-14.5); Segmented Neutrophils % 89.3 %; White Blood Count 19.9 K/mcL (4.3-11.1)
[2019-05-13 02:23] LABS: BUN/Creatinine Ratio 15 (6-26); Blood Urea Nitrogen 22 mg/dL (8-23); Calcium 8.3 mg/dL (8.6-10.3); Carbon Dioxide 26 mEq/L (23-29); Chloride 100 mEq/L (98-107); Glucose 272 mg/dL (70-105); Magnesium 1.7 mg/dL (1.6-2.6); Osmolality,Calculated 291 (280-300); Phosphorous 3.3 mg/dL (2.7-4.5); Potassium 4.4 mEq/L (3.5-5.1); Sodium 134 mEq/L (136-145); Troponin I < 0.03 ng/mL (< 0.04); eGFR For African Americans 42 (> 60); eGFR For Non-African Americans 35 (> 60)
[2019-05-13] MEDS: Cefepime HCl 2,000 MG in Water for inj. (sterile) 20 ML IVP SCH ×3 (05:22→18:55)
[2019-05-13] MEDS ORDERED: *HR* HYDROmorphone PF 0.5 MG/0.5 ML SYRINGE IVP PRN (08:21)
[2019-05-13] MEDS ORDERED: *HR* Promethazine 25 MG/ML VIAL IVP PRN (08:21)
[2019-05-13] MEDS ORDERED: *HR* OxyCODONE Immed Rel 5 MG TABLET PO PRN (08:21)
[2019-05-13] MEDS ORDERED: Ondansetron 4 MG/2 ML VIAL IVP ONE (08:21)
[2019-05-13] MEDS ORDERED: *HR* Labetalol 20 MG/4 ML SYRINGE IVP PRN (08:21)
[2019-05-13] MEDS ORDERED: 0.9 % Sodium Chloride 1,000 ML IVC SCH (08:30)
[2019-05-13] MEDS ORDERED: Famotidine 20 MG/2 ML VIAL ONE (08:43)
[2019-05-13] MEDS ORDERED: Acetaminophen IV 1,000 MG/100 ML INFUS..BTL ONE (08:43)
[2019-05-13] MEDS ORDERED: Lidocaine Jelly 6ml 1 APPL/6 ML JEL.PF.APP ONE (08:48)
[2019-05-13] MEDS ORDERED: *HR* HYDROMORPHONE 2 MG/ML VIAL ONE (08:49)
[2019-05-13] MEDS ORDERED: Lidocaine -MPF 2% 2 ML VIAL ONE (08:49)
[2019-05-13] MEDS ORDERED: *HR* Propofol 200 MG/20 ML VIAL IVP ONE (08:49)
[2019-05-13] MEDS ORDERED: *HR* FentaNYL (PF) 100 MCG/2 ML VIAL ONE (08:49)
[2019-05-13] MEDS ORDERED: *HR* Succinylcholine 200 MG/10 ML VIAL IVP ONE (08:50)
[2019-05-13] MEDS ORDERED: Ondansetron 4 MG/2 ML VIAL ONE (08:50)
[2019-05-13] MEDS ORDERED: Dexamethasone 4 MG/ML VIAL ONE (08:50)
[2019-05-13] MEDS ORDERED: *HR* Rocuronium Bromide 50 MG/5 ML VIAL ONE (08:50)
[2019-05-13 09:23] LABS: Alanine Aminotransferase 45 Units/L (7-52); Albumin 3.8 g/dL (3.5-5.7); Albumin/Globulin Ratio 1.2 (1.1-2.2); Alkaline Phosphatase 199 Units/L (34-104); Aspartate Amino Transferase 37 Units/L (13-39); Bilirubin,Direct 0.4 mg/dL (0.0-0.2); Bilirubin,Indirect 0.5 mg/dL (0.0-1.0); Bilirubin,Total 0.9 mg/dL (0.3-1.0); Globulin 3.1 g/dL (2.4-3.5); Total Protein 6.9 g/dL (6.4-8.9)
[2019-05-13] MEDS ORDERED: Acetaminophen 325 MG TABLET PO PRN (23:15)
[2019-05-14] MEDS ORDERED: Water for inj. (sterile) 10 ML ONE (05:27)
[2019-05-14] MEDS: Cefepime HCl 2,000 MG in Water for inj. (sterile) 20 ML IVP SCH (05:34)
[2019-05-14 08:08] LABS: Basophils # 0.1 K/mcL (0.0-0.2); Basophils % 0.8 %; Eosinophils # 0.2 K/mcL (0.0-0.6); Eosinophils % 1.5 %; Hematocrit 41.5 % (35.3-44.9); Hemoglobin 12.6 g/dL (11.5-15.4); Immature Granulocytes % 2.1 % (0-4); Lymphocytes # 2.2 K/mcL (0.6-4.6); Mean Corpuscular HGB Conc 30.4 g/dL (31.6-35.5); Mean Corpuscular Hemoglobin 27.4 pg (28.0-33.3); Mean Corpuscular Volume 90.2 fL (83.0-100.0); Mean Platelet Volume 9.8 fL (9.4-12.4); Monocytes # 0.8 K/mcL (0.0-1.3); Monocytes % 5.5 %; Platelet Count 228 K/mcL (140-400); Red Cell Distribution Width 13.9 % (11.5-14.5); Segmented Neutrophils % 75.1 %; White Blood Count 14.6 K/mcL (4.3-11.1)
[2019-05-14 08:28] LABS: Calcium 8.7 mg/dL (8.6-10.3); Potassium 4.2 mEq/L (3.5-5.1)
[2019-05-14] MEDS: Insulin LISPRO 300 UNITS/3 ML VIAL SQ SCH ×4 (09:10→20:32)
[2019-05-14] MEDS: carvediloL 25 MG TABLET PO SCH ×2 (09:11→16:51)
[2019-05-14] MEDS: MetroNIDAZOLE 500 MG/100 ML 500 MG/100 ML BAG IVPB SCH ×3 (09:11→23:43)
[2019-05-14 12:29] LABS: Estimated Average Glucose 171 mg/dl
[2019-05-14] MEDS ORDERED: Simethicone 80 MG TAB.CHEW PO PRN (16:32)
[2019-05-14] MEDS: Isosorbide MONOnitrate (24 HR) 30 MG TAB.ER.24H PO SCH (20:31)
[2019-05-14] MEDS ORDERED: Insulin DETEMIR 100 UNIT/ML X5UNITS SQ SCH (21:00)
[2019-05-14] MEDS ORDERED: Aspirin Enteric Coated 81 MG Tablet PO SCH (21:00)
[2019-05-14] MEDS ORDERED: *HR* Heparin 5,000 UNIT/ML VIAL SQ SCH (23:13)
[2019-05-15 05:09] LABS: Basophils # 0.2 K/mcL (0.0-0.2); Basophils % 1.3 %; Eosinophils # 0.3 K/mcL (0.0-0.6); Eosinophils % 2.3 %; Hematocrit 37.3 % (35.3-44.9); Hemoglobin 11.6 g/dL (11.5-15.4); Immature Granulocytes % 3.7 % (0-4); Lymphocytes # 2.6 K/mcL (0.6-4.6); Lymphocytes % 21.9 %; Mean Corpuscular HGB Conc 31.1 g/dL (31.6-35.5); Mean Corpuscular Volume 89.9 fL (83.0-100.0); Mean Platelet Volume 9.9 fL (9.4-12.4); Monocytes # 0.9 K/mcL (0.0-1.3); Monocytes % 7.2 %; Neutrophils # 7.6 K/mcL (1.6-8.9); Platelet Count 225 K/mcL (140-400); Red Blood Count 4.15 M/mcL (3.82-4.97); Segmented Neutrophils % 63.6 %
[2019-05-15 05:28] LABS: Albumin 3.8 g/dL (3.5-5.7); Albumin/Globulin Ratio 1.2 (1.1-2.2); Bilirubin,Total 0.5 mg/dL (0.3-1.0); Calcium 8.8 mg/dL (8.6-10.3); Globulin 3.1 g/dL (2.4-3.5); Potassium 3.8 mEq/L (3.5-5.1); Total Protein 6.9 g/dL (6.4-8.9)
[2019-05-15 06:38] VITALS: BP 148/52
[2019-05-15] MEDS: carvediloL 25 MG TABLET PO SCH (08:45)
[2019-05-15] MEDS: Isosorbide MONOnitrate (24 HR) 30 MG TAB.ER.24H PO SCH (08:45)
[2019-05-15] MEDS: Insulin LISPRO 300 UNITS/3 ML VIAL SQ SCH (08:47)
[2019-05-15] MEDS: MetroNIDAZOLE 500 MG/100 ML 500 MG/100 ML BAG IVPB SCH (08:48)
[2019-05-15] MEDS ORDERED: Magnesium Oxide 400 MG TABLET PO SCH (09:00)
[2019-05-15] MEDS ORDERED: Aminoglycoside Consult 1 EACH MC ONE (10:58)
== END 2019-05-15 10:59 | disposition home or self-care (01) ==
LOC: EMEROOARM 17:33 → 3ANU 17:33 → SUATTDRO 21:50 → 3ANU 23:00
PROVIDERS: ADMIT Internal Medicine; ATTEND Internal Medicine